=== PATIENT | male | born 1940 | race Caucasian/White ===

== ENCOUNTER → 2016-10-26 | Outpatient (CLI) | payer BC ==
[~2016-10-26] MED LIST: ASPEC81 PO; LISI-788 PO; OMEG10007 PO; PRED20TA PO; RED YEAST RICE
--- NOTE | 2016-10-26 13:02 | DIAGNOSTIC IMAGING REPORT ---
LEFT FOOT MIN 3 VIEWS ROUTINE CLINICAL HISTORY: Intermittent left foot pain. Possible gout. COMPARISON: None FINDINGS: Alignment of the tarsometatarsal joints is anatomic. There is no acute fracture. There is marked joint space narrowing with osteophytosis of the left first metatarsophalangeal joint. Degenerative changes involve the sesamoids. There is mild soft tissue swelling. There are no erosions or soft tissue calcifications. There is mild arthritis within multiple additional articulations of the left foot. There is a suspected healed fracture of the proximal phalanx of the left fifth toe. IMPRESSION: 1. No acute fracture. 2. Marked joint space narrowing with osteophytosis of the left first metatarsophalangeal joint. No erosions or soft tissue calcifications. 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 Electronically signed by: Arnoldo Shea M.D. 10/26/2016 1:00 PM Dictated Date/Time: 10/26/2016 12:59 PM
== END | disposition home or self-care (01) ==
LOC: C.RAD1850 12:28
PROVIDERS: ATTEND Family Medicine
DX: M79.672 Pain in left foot (principal); M25.775 Osteophyte, left foot; E55.9 Vitamin D deficiency, unspecified

== ENCOUNTER → 2016-10-26 | Outpatient (CLI) | payer BC | END | disposition home or self-care (01) | LOC: C.LAB1850 12:07 | PROVIDERS: ATTEND Family Medicine | DX: M79.672 Pain in left foot (principal); E55.9 Vitamin D deficiency, unspecified ==

== ENCOUNTER → 2017-02-25 | Outpatient (CLI) | payer BC | END | disposition home or self-care (01) | LOC: C.LAB1850 12:27 | PROVIDERS: ATTEND Student in an Organized Health Care Education/Training Program | DX: M19.90 Unspecified osteoarthritis, unspecified site (principal); I10 Essential (primary) hypertension; Z68.29 Body mass index [BMI] 29.0-29.9, adult; I35.0 Nonrheumatic aortic (valve) stenosis; E55.9 Vitamin D deficiency, unspecified; R73.01 Impaired fasting glucose; E78.5 Hyperlipidemia, unspecified ==

== ENCOUNTER → 2017-05-13 | Outpatient (CLI) | payer BC ==
--- NOTE | 2017-06-19 08:31 | CODING QUERY NO DIAGNOSIS ---
TREATMENT RENDERED WITHOUT A DIAGNOSIS 40 To promote full compliance with coding requirements relating to patient care, physician participation is requested in all cases of talent acquisition assistant uncertainty. Please assist us with providing a diagnosis/symptom for the test(s) below: A diagnosis/symptom was not documented on your Order. A valid diagnosis/symptom is required to bill all insurances. Please remember that we are unable to code a diagnosis of rule out, probable, possible, questionable, or suspected. DOS 05/13/17 Tests that require a diagnosis: * LAB DIAGNOSIS: Provider Signature: Date: Thank you Tona Lynch [employer] Information Management Once completed, please kindly fax back to [phone] For questions please call [phone]
== END | disposition home or self-care (01) ==
LOC: C.LAB1850 09:39
PROVIDERS: ATTEND Student in an Organized Health Care Education/Training Program
DX: Z01.89 Encounter for other specified special examinations (principal)

== ENCOUNTER → 2017-06-18 | Outpatient (CLI) | payer BC ==
[2017-06-18 12:27] LABS: CHOLESTEROL/HDL RATIO 2.2
== END | disposition home or self-care (01) ==
LOC: C.LAB1850 10:11
PROVIDERS: ATTEND Internal Medicine Cardiovascular Disease
DX: E78.5 Hyperlipidemia, unspecified (principal)

== ENCOUNTER → 2017-06-18 | Outpatient (CLI) | payer BC ==
[2017-06-18 12:20] LABS: ALT/SGPT 33 U/L (12-78); BLOOD UREA NITROGEN 16 mg/dl (7-18); BUN/CREATININE RATIO 19.8 (10-20); C-REACTIVE PROTEIN 0.37 mg/dl (0-0.29); CALCIUM 9.3 mg/dl (8.5-10.1); CARBON DIOXIDE 27 mmol/L (21-32); CHLORIDE 106 mmol/L (98-107); CREATININE 0.83 mg/dl (0.60-1.40); GLUCOSE 103 mg/dl (70-99); SODIUM 138 mmol/L (136-145)
[2017-06-18 12:23] LABS: ALB/GLOB RATIO 1.1 (0.9-2); ALKALINE PHOSPHATASE 82 U/L (45-117); AST/SGOT 27 U/L (15-37)
[2017-06-18 12:31] LABS: INSULIN LOG 0.699
[2017-06-18 12:36] LABS: ESTIMATED AVERAGE GLUCOSE 111 mg/dl; HA1C FLAG Normal (Normal)
[2017-06-18 12:48] LABS: CALCULATED INSULIN SENSITIVITY 0.369
== END | disposition home or self-care (01) ==
LOC: C.LAB1850 10:14
PROVIDERS: ATTEND Physician Assistant Medical
DX: I35.0 Nonrheumatic aortic (valve) stenosis (principal); E66.3 Overweight; R53.83 Other fatigue; E78.5 Hyperlipidemia, unspecified

== ENCOUNTER → 2017-11-19 | Day surgery (SDC) | payer BC ==
[2017-11-07 15:03] VITALS: Ht 176.5 cm; Wt 83.6 kg
[~2017-11-19] VITALS: Ht 176.5 cm; Wt 83.6 kg
[~2017-11-19] MED LIST changes: +AMOX500C3 PO; -ASPEC81 PO; +ASPI81TA28 PO; +B-COTAB53 PO; +CHOL1000 PO; +COEN90TA PO; +LIDOCAINE HCL 2% 2 ML VIAL (20MG/ML) ONE; -LISI-788 PO; +LPT20 PO; +MAGN1POW2 PO; +MULT-506 PO; +NIAC250T8 PO; +NRV/10 PO; +PHEN-905 PO; -PRED20TA PO; +PROPOFOL IV EMULSION 10 MG/ML 20 ML VIAL IV ONE; -RED YEAST RICE; +TAMS0.4C38 PO
--- NOTE | 2017-11-19 10:19 | Endo History and Physical ---
History & Physical Date of Service: Nov 19, 2017. Chief Complaint: Screening Referring Physician: Dr. Acosta History of Present Illness 77 yo CM who presents for screening colonoscopy. Past Surgical History Hx Cardiac Surgery: No Hx Internal Defibrillator: No Hx Pacemaker: No Hx Abdominal Surgery: No Hx of Implantable Prosthesis: No Hx Post-Op Nausea and Vomiting: No Hx Cancer Surgery: No Hx Thoracic Surgery: No Hx Orthopedic: No Hx Urinary Tract Surgery: No Family History None Social History Smoking Status: Former Smoker Hx Substance Use: No Hx Alcohol Use: Yes (2 BEERS/DAY) Allergies Coded Allergies: Lisinopril (Verified Allergy, Unknown, TONGUE SWELLING, 11/07/17) Current Medications Reported Home Medications Medications Dose Route/Sig Max Daily Dose Days Date Category Nyquil Severe Cold/Flu 5-6.25-10-325 mg/15Ml (Zqgwqsvzlynfr-Zoqvpeyboo-Ghcyu) 1 Liq Liq 1 Dose PO UD PRN 11/07/17 Reported Niacin 250 Mg Tab 250 Mg PO DAILY 11/07/17 Reported Co Q10 (Coenzyme Q10) 90 Mg Tab 1 Tab PO DAILY 11/07/17 Reported Multivitamin (Multivitamins) Tab 1 Tab PO DAILY 11/07/17 Reported Amoxil (Amoxicillin) 500 Mg Cap 4 Cap PO UD PRN 11/07/17 Reported Vitamin D3 (Cholecalciferol) 1,000 Unit Tab 1 Tab PO DAILY 11/07/17 Reported Magnesium Glycinate (Magnesium Glycinate (Bulk)) 1 Pow Pow 1 Tab PO DAILY 11/07/17 Reported B Complex (B-Complex W/ Folic Acid) 1 Tab Tab 1 Tab PO DAILY 11/07/17 Reported Flomax (Tamsulosin Hcl) 0.4 Mg Cap 0.4 Mg PO QPM 11/07/17 Reported Aspirin Ec (Aspirin) 81 Mg Tab 81 Mg PO DAILY 11/07/17 Reported Lipitor (Atorvastatin Calcium) 20 Mg Tab 1 Tab PO QPM 11/07/17 Reported Amlodipine Besylate 10 Mg Tab 20 Mg PO QAM 11/07/17 Reported [place]-3 (Fish Oil) 1 Ea Cap 1 Cap PO DAILY 12/22/10 Reported Vital Signs Weight (Kilograms): 83.64 Height (Feet): 5 Height (Inches): 9.5 Physical Exam General Appearance: WD/WN, no apparent distress Respiratory/Chest: Auscultation: breath sounds normal Cardiovascular: Heart Auscultation: RRR Abdomen: Bowel Sounds: normal Inspection & Palpation: soft, non-distended, no tenderness, guarding & rebound Assessment and Plan Assessment: 77 yo CM who presents for screening colonoscopy. Plan: Proceed with colonoscopy.
--- NOTE | 2017-11-19 11:26 | Discharge Instructions ---
Endoscopy Patient Instructions Date / Procedure(s) Performed Nov 19, 2017. Colonoscopy Allergy Information Coded Allergies: Lisinopril (Verified Allergy, Unknown, TONGUE SWELLING, 11/07/17) Discharge Date / Findings Nov 19, 2017. Colon polyps Diverticulosis Internal hemorrhoids Medication Instructions Stopped Medication(s): stopped all supplements on saturday,last ASA Saturday OK to resume all medications today as prescribed Reported Home Medications Medications Dose Route/Sig Max Daily Dose Days Date Category Nyquil Severe Cold/Flu 5-6.25-10-325 mg/15Ml (Lmsfmifkxiiuz-Uajvevpjkc-Imnit) 1 Liq Liq 1 Dose PO UD PRN 11/07/17 Reported Niacin 250 Mg Tab 250 Mg PO DAILY 11/07/17 Reported Co Q10 (Coenzyme Q10) 90 Mg Tab 1 Tab PO DAILY 11/07/17 Reported Multivitamin (Multivitamins) Tab 1 Tab PO DAILY 11/07/17 Reported Amoxil (Amoxicillin) 500 Mg Cap 4 Cap PO UD PRN 11/07/17 Reported Vitamin D3 (Cholecalciferol) 1,000 Unit Tab 1 Tab PO DAILY 11/07/17 Reported Magnesium Glycinate (Magnesium Glycinate (Bulk)) 1 Pow Pow 1 Tab PO DAILY 11/07/17 Reported B Complex (B-Complex W/ Folic Acid) 1 Tab Tab 1 Tab PO DAILY 11/07/17 Reported Flomax (Tamsulosin Hcl) 0.4 Mg Cap 0.4 Mg PO QPM 11/07/17 Reported Aspirin Ec (Aspirin) 81 Mg Tab 81 Mg PO DAILY 11/07/17 Reported Lipitor (Atorvastatin Calcium) 20 Mg Tab 1 Tab PO QPM 11/07/17 Reported Amlodipine Besylate 10 Mg Tab 20 Mg PO QAM 11/07/17 Reported [place]-3 (Fish Oil) 1 Ea Cap 1 Cap PO DAILY 12/22/10 Reported Provider Instructions Activity Restrictions - No exercising or heavy lifting for 24 hours. - Do not drink alcohol the day of the procedure. - Do not drive a car or operate machinery until the day after the procedure. - Do not make any important decisions or sign important papers in 24 hours after the procedure. Following Day: - Return to full activity which may include returning to work/school. Diet Start your diet with liquids and light foods (jello, soup, juice, toast). Then eat your usual diet if not nauseated. Treatment For Common After Affects For mild abdominal pain, bloating, or excessive gas: - Rest - Eat lightly - Lie on right side Follow-Up Information Follow-up with Dr. Kvng Acosta as scheduled Anesthesia Information What You Should Know You have had a procedure that required some medicine to reduce anxiety and discomfort. This treatment is called moderate sedation. After receiving the treatment, you may be sleepy, but you will be able to breathe on your own. The effects of the treatment may last for several hours. Follow these instructions along with Activity/Diet recommendations noted above: * Do NOT do anything where dizziness or clumsiness would be dangerous. * Rest quietly at home today, then you can be up and about tomorrow. * Have a responsible person stay with you the rest of today. * You may have had an I.V. today. If so, you may take the dressing off later today. Recommendations Call your doctor if: * Trouble breathing * Continuous vomiting for more than 24 hours * Temperature above 101 degrees * Severe abdominal pain or bloating * Pain not relieved by pain medicine ordered * There is increased drainage or redness from any incision * A large amount of rectal bleeding greater than 2-3 tablespoons. (If you had a polyp/s removed or have hemorrhoids, a small amount of blood - from the rectum is to be expected.) * You have any unanswered questions or concerns. IN THE EVENT OF A SERIOUS EMERGENCY, GO TO THE NEAREST EMERGENCY ROOM Your discharge instructions were prepared by provider Fernando Mitchell. Patient Instructions Signature Page Jhonatan Persaud Patient (or Guardian) Signature/Date: I have read and understand the instructions given to me by my caregivers. Caregiver/RN/Doctor Signature/Date: The above-named patient and/or guardian has received patient instructions on this date. + Original Patient Signature Page (only) stays with chart. Please make copy for patient.
--- NOTE | 2017-11-19 11:35 | Anesthesiology Progress Note ---
Anesthesia Post Op Note Date & Time Nov 19, 2017 at 11:35 Vital Signs Pain Intensity: 0 Vital Signs Past 12 Hours Date Time Temp Pulse Resp B/P (MAP) Pulse Ox O2 Delivery O2 Flow Rate FiO2 11/19/17 11:29 79 20 119/67 (84) 98 Room Air 11/19/17 10:32 37 104 16 159/81 (107) 98 Room Air Notes Mental Status: alert / awake / arousable, participated in evaluation Pt Amnestic to Procedure: Yes Nausea / Vomiting: adequately controlled Pain: adequately controlled Airway Patency, RR, SpO2: stable & adequate BP & HR: stable & adequate Hydration State: stable & adequate Anesthetic Complications: no major complications apparent
--- NOTE | 2017-11-19 11:35 | GI REPORT ---
Procedure Date: 11/19/2017 10:54 AM Procedure: Colonoscopy Indications: Screening for colorectal malignant neoplasm Medicines: Monitored Anesthesia Care Complications: No immediate complications. Estimated Blood Loss: Estimated blood loss: none. Procedure: Pre-Anesthesia Assessment: - Prior to the procedure, a History and Physical was performed, and patient medications and allergies were reviewed. The patient's tolerance of previous anesthesia was also reviewed. The risks and benefits of the procedure and the sedation options and risks were discussed with the patient. All questions were answered, and informed consent was obtained. Prior Anticoagulants: The patient has taken aspirin, last dose was 2 days prior to procedure. ASA Grade Assessment: III - A patient with severe systemic disease. After reviewing the risks and benefits, the patient was deemed in satisfactory condition to undergo the procedure. After I obtained informed consent, the scope was passed under direct vision. Throughout the procedure, the patient's blood pressure, pulse, and oxygen saturations were monitored continuously. The scope was introduced through the anus and advanced to the terminal ileum. The colonoscopy was performed without difficulty. The patient tolerated the procedure well. The quality of the bowel preparation was good. The terminal ileum, ileocecal valve, appendiceal orifice, and rectum were photographed. Findings: Two sessile polyps were found in the ascending colon. The polyps were 5 to 8 mm in size. These polyps were removed with a hot snare. Resection and retrieval were complete. To prevent bleeding after the polypectomy, one hemostatic clip was successfully placed (MR conditional). There was no bleeding at the end of the procedure. Multiple small-mouthed diverticula were found in the sigmoid colon. Non-bleeding internal hemorrhoids were found during retroflexion. The hemorrhoids were small. Impression: - Two 5 to 8 mm polyps in the ascending colon, removed with a hot snare. Resected and retrieved. Clip (MR conditional) was placed. - Diverticulosis in the sigmoid colon. - Non-bleeding internal hemorrhoids. Recommendation: - Resume previous diet. - Continue present medications. - Repeat colonoscopy for surveillance based on pathology results. - Return to primary care physician as previously scheduled. Fernando Mitchell DO 11/19/2017 11:34:32 AM This report has been signed electronically. Note Initiated On: 11/19/2017 10:54 AM I attest to the content of the Intraoperative Record and orders documented therein, exceptions below
[2017-11-19 12:01] VITALS: BP 142/76; PULSE 65; O2SAT 98
== END | disposition home or self-care (01) ==
LOC: C.GI 10:08
PROVIDERS: ATTEND Internal Medicine
DX: Z12.11 Encounter for screening for malignant neoplasm of colon (principal); D12.2 Benign neoplasm of ascending colon; K57.30 Diverticulosis of large intestine without perforation or abscess without bleeding; K64.8 Other hemorrhoids; I10 Essential (primary) hypertension; E78.5 Hyperlipidemia, unspecified; Z88.8 Allergy status to other drugs, medicaments and biological substances; Z79.82 Long term (current) use of aspirin; Z87.891 Personal history of nicotine dependence

== ENCOUNTER → 2018-02-13 | Outpatient (CLI) | payer BC ==
[~2018-02-13] MED LIST changes: -LIDOCAINE HCL 2% 2 ML VIAL (20MG/ML) ONE; -PROPOFOL IV EMULSION 10 MG/ML 20 ML VIAL IV ONE
== END | disposition home or self-care (01) ==
LOC: C.LABSPEC 17:08
PROVIDERS: ATTEND Podiatrist Primary Podiatric Medicine
DX: B35.1 Tinea unguium (principal)

== ENCOUNTER 2025-05-09 05:41 | Observation (INO) ==
--- NOTE | 2025-05-09 06:03 | Emergency Department Note ---
Impression & Plan Lower gastrointestinal hemorrhage, Hematochezia ED Provider Note NAME: YANY CUTLER AGE: 85 SEX: M : 1940 ARRIVES VIA: Walk-In INFORMANT: Patient, ED PROVIDER(S): Erick Cole DO CHIEF COMPLAINT: GI bleeding HPI: The patient is an 85-year-old male who presented to the emergency department for evaluation of GI bleeding. The patient noticed GI bleeding with clots this morning. He noticed bright red blood. He does have a history of a hemorrhoid. The patient denies having any fever or or vomiting. A few days ago he did have some lower back pain but currently does not have any back pain. The patient came directly to the emergency department this morning. He did not take his Eliquis this morning. ROS: See above HPI for pertinent positives & negatives. A total of 10 systems reviewed and were otherwise negative. PAST MEDICAL HISTORY: See Below PAST SURGICAL HISTORY: See Below FAMILY HISTORY: See Below SOCIAL HISTORY: See Below HOME MEDICATIONS: See Below ALLERGIES: See Below VITALS: See Below PHYSICAL EXAMINATION: GENERAL: Patient is awake alert in no acute distress patient is resting comfortably and showing no signs of anxiety EYES: The conjunctivae are clear. The pupils are round and reactive. EARS, NOSE, MOUTH AND THROAT: The nose is without any evidence of any deformity. NECK: The neck is nontender and supple. RESPIRATORY: Normal respiratory effort is noted there is no evidence of wheezing rhonchi or rales CARDIOVASCULAR: Tachycardic and regular heart sounds were noted to auscultation. There is no definite murmur. GASTROINTESTINAL: The abdomen was soft and nondistended. There is no tenderness guarding rigidity. Rectal exam revealed gross blood. There was an external hemorrhoid but no obvious bleeding was noted. MUSCULOSKELETAL/EXTREMITIES: There is no evidence of gross deformity full range of motion is noted in the hips and shoulders. SKIN: Trace pedal edema was noted bilaterally. NEUROLOGIC: Patient is awake alert and oriented x3 MEDICAL DECISION MAKING: The patient is an 85-year-old male who presented to the emergency department for lower GI bleeding. The patient does not have any significant history of lower GI bleeding. No recent colonoscopy was in our system. The patient had gross blood per rectum. He was passing clots as well. He does take oral anticoagulation because of a history of valve replacement. I discussed the patient's laboratory and radiographic studies with him. Vital signs were stable and hemoglobin was stable. Given his use of oral anticoagulation I do not feel he would be a good candidate for outpatient management so I discussed his condition with the on-call [facility] hospitalist. They have agreed to evaluate the patient in the emergency department for further management and disposition. Likely this represents diverticular bleeding but other sources will likely need to be evaluated. Triage Nursing notes reviewed. Prior medical records reviewed Vital Signs: reviewed and remarkable for no significant abnormalities Differential diagnosis: Diverticulosis, AVM, coagulopathy, colitis, inflammatory bowel disease, malignancy, Shannan-Escoto tear, esophagitis, peptic ulcer disease, variceal bleed, gastritis, epistaxis, fissure, hemorrhoids, as well as other pathologies. ER treatment provided: See below Diagnostics interpreted by me: ECG: EKG was obtained in the emergency department. My interpretation is atrial sensed ventricular paced rhythm at 76 bpm. A left bundle branch block pattern was noted. Nonspecific ST abnormalities were noted. QTc was 459 ms. Cardiac Monitoring: An order was placed for continuous cardiac monitoring. The monitor shows a rate of 82 bpm with paced rhythm. Laboratory studies: As stated above and show below. Imaging studies: See below. Radiographic imaging was reviewed by myself Consultation(s): I discussed this case with Darlin who was on-call for the [facility]ist group. 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 Beliefs That Will Affect Care: None Current Living Situation: Spouse current occupation: Retired Feels Safe at Home: Yes Assistive Devices: None Allergies Allergies Allergy/AdvReac Type Severity Reaction Status Date / Time lisinopril Allergy Unknown TONGUE Verified 07/06/22 11:27 SWELLING Triamterene-HCTZ TABS Allergy Uncoded 07/06/22 11:27 Home Meds Home Medications Medication Instructions Recorded Confirmed aspirin 81 mg chewable tablet 81 mg PO DAILY 07/10/22 07/10/22 Previous Rx's Medication Instructions Recorded acetaminophen 500 mg capsule 1,000 mg (2 x 500 mg) PO TID PRN 06/22/19 pain #90 caps amlodipine 10 mg tablet 10 mg PO DAILY #90 tabs 06/22/19 multivitamin (Multiple Vitamins 1 tab PO QAM #30 tabs 06/22/19 tablet) niacin 250 mg capsule,extended 250 mg PO DAILY #90 caps 06/22/19 release tamsulosin 0.4 mg capsule 0.4 mg PO DAILY #90 caps 06/22/19 atorvastatin 20 mg tablet 20 mg PO QPM #90 tabs 10/26/24 Results & Data (ED) Vital Signs Vital Signs - 24 hr 05/09/25 05:42 05/09/25 05:48 05/09/25 06:00 Temperature 36.7 C Temperature Source Oral Pulse Rate 93 H Pulse Rate [Apical] Respiratory Rate 18 Respiratory Effort / Characteristics Non-Labored Non-Labored Spontaneous Respiratory Depth Normal Normal Respiratory Pattern Regular Blood Pressure [Left Arm] Blood Pressure Mean [Left Arm] Pulse Oximetry Oxygen Delivery Method Room Air Room Air Sepsis Recent Fever Within 48 Hours No Sepsis New/Unexplained Change in Mental Status No Sepsis Action Taken by Nursing No Action Required 05/09/25 06:24 05/09/25 07:30 Temperature Temperature Source Pulse Rate 72 Pulse Rate [Apical] 70 Respiratory Rate 16 Respiratory Effort / Characteristics Non-Labored Spontaneous Respiratory Depth Normal Respiratory Pattern Regular Blood Pressure [Left Arm] 172/64 H Blood Pressure Mean [Left Arm] 100 Pulse Oximetry 95 Oxygen Delivery Method Room Air Sepsis Recent Fever Within 48 Hours Sepsis New/Unexplained Change in Mental Status Sepsis Action Taken by Residential Medications Current Medication List: was personally reviewed by me Laboratory Data Attestation: I reviewed the patient's lab results. 05/09/25 06:10 05/09/25 06:10 Lab Results 05/09/25 05/09/25 Range/Units 06:10 06:30 WBC 7.37 (4.8-10.8) K/ul RBC 4.29 L (4.70-6.10) M/uL Hgb 14.1 (14.0-18.0) g/dl Hct 39.1 L (42.0-52.0) % MCV 91.1 (80.0-100.0) fL MCH 32.9 (25.0-34.0) pg MCHC 36.1 H (32.0-36.0) g/dL RDW Std Deviation 43.8 (36.4-46.3) fL RDW Coeff of Sanya 13.1 (11.5-14.5) % Plt Count 226 (130-400) K/uL MPV 9.0 L (9.4-12.4) fL Immature Gran % (Auto) 0.3 % Neut % (Auto) 61.2 % Lymph % (Auto) 25.0 % [place] % (Auto) 10.3 % Eos % (Auto) 2.4 % Baso % (Auto) 0.8 % Neut # (Auto) 4.51 (1.40-6.50) K/uL Lymph # (Auto) 1.84 (1.20-3.40) K/uL [place] # (Auto) 0.76 H (0.11-0.59) K/uL Eos # (Auto) 0.18 (0.00-0.50) K/uL Baso # (Auto) 0.06 (0.00-0.20) K/uL Immature Gran # (Auto) 0.02 (0.01-0.20) K/uL PT 10.6 (9.0-12.0) Seconds INR 1.0 (0.9-1.1) APTT 32 H (21-31) Seconds PTT Ratio 1.2 Sodium 131 L (136-145) mmol/L Potassium 4.5 (3.5-5.1) mmol/L Chloride 97 L (98-107) mmol/L Carbon Dioxide 27 (21-32) mmol/L Anion Gap 7 (3-11) BUN 17 (6-23) mg/dl Creatinine 0.84 (0.6-1.4) mg/dl Est Cr Clr Drug Dosing 64.2 ml/min eGFR 85.46 BUN/Creatinine Ratio 20.2 H (10-20) Glucose 123 H (70-99(Fasting)) mg/dl Calcium 8.9 (8.6-10.3) mg/dl Total Bilirubin 0.5 (0.2-1.0) mg/dl AST 21 (13-39) U/L ALT 12 (7-52) U/L Alkaline Phosphatase 65 (34-104) U/L Troponin I High Sens 9.6 (0-20) pg/ml Total Protein 6.5 (6.0-8.3) gm/dl Albumin 4.1 (3.4-5.0) gm/dl Globulin 2.4 L (2.5-4.0) gm/dl Albumin/Globulin Ratio 1.7 (0.9-2) Lipase 16 (11-82) U/L Urine Color Yellow Urine Appearance Clear (Clear) Urine pH 6.0 (4.5-7.5) Ur Specific [place] 1.014 (1.000-1.030) Urine Protein 2+ H (Negative) Urine Glucose (UA) Negative (Negative) Urine Ketones Negative (Negative) Urine Blood Trace H (Negative) Urine Nitrite Negative (Negative) Urine Bilirubin Negative (Negative) Urine Urobilinogen Negative (Negative) Ur Leukocyte Esterase Negative (Negative) Urine WBC (Auto) 0-5 (0-5) /hpf Urine RBC (Auto) 0-2 (0-2) /hpf U Hyaline Cast (Auto) 0-2 (0-2) /lpf U Epithel Cells (Auto) 0-2 (0-2) /hpf Urine Bacteria (Auto) None Seen (None Seen) Urine Comment Blood Type O Positive Antibody Screen NEGATIVE Administered Medications Discontinued Medications Sodium Chloride (Nss) 500 mls @ 999 mls/hr IV .Q31M STA Stop: 05/09/25 06:29 Last Infusion: 05/09/25 06:59 Dose: Infused Documented By: Admin: 05/09/25 06:19 Dose: 999 mls/hr Documented By: TAWANA Imaging Data Attestation: I personally reviewed and interpreted this imaging study as follows: My Impression: 1 view chest x-ray was obtained in the emergency department. My interpretation is no free air, cardiomegaly noted, final report below. Radiologist's Impression: Chest X-Ray 05/09/25 06:00 EXAM: XR chest 1V portable CLINICAL HISTORY: GIB TECHNIQUE: An X-ray image of the chest is obtained in PA projection. COMPARISON: No prior studies are available for comparison. FINDINGS: Pulmonary Parenchyma: Right basal atelactasis. No evidence of consolidation, collapse, or focal opacities. No pulmonary nodules are identified. No evidence of pleural effusion or pleural thickening. Heart and Mediastinum: Mild cardiomegaly. No mediastinal widening or masses. No hilar or mediastinal lymphadenopathy. Bony Thorax: Bony thorax appears intact without fractures or deformities. Soft Tissues: Soft tissues overlying the chest wall are unremarkable. Cardiac pacemaker in place. Aortic stent is seen. IMPRESSION: 1. No acute cardiopulmonary abnormalities are identified. 2. Mild cardiomegaly. 3. Cardiac pacemaker in place. Electronically signed by Randal Graham 05-09-2025 07:13 AM Discharge Plan Visit Data Chief Complaint: Rectal Bleed Stated Complaint: bleeding from rectum ED Provider: Erick Cole Discharge Problem: Lower gastrointestinal hemorrhage, Hematochezia Patient Disposition: Being Evaluated by Hospitalist Condition: Fair Forms Stand Alone Forms: [employer] Prescriptions Prescriptions: No Action acetaminophen 500 mg capsule 1,000 mg PO TID PRN (Reason: pain) Qty: 90 0RF multivitamin [Multiple Vitamins] tablet 1 tab PO QAM Qty: 30 0RF niacin 250 mg capsule, extended release 250 mg PO DAILY Qty: 90 3RF amlodipine 10 mg tablet 10 mg PO DAILY Qty: 90 3RF tamsulosin 0.4 mg capsule 0.4 mg PO DAILY Qty: 90 3RF atorvastatin 20 mg tablet 20 mg PO QPM Qty: 90 3RF aspirin 81 mg Tablet,Chewable 81 mg PO DAILY Referrals Referrals: Kvng Acosta MD [Primary Care Provider] -
[2025-05-09] MEDS: SODIUM CHLORIDE 0.9% 500 ML IV STA (06:19)
[2025-05-09 06:34] LABS: Hematocrit (blood only) 39.1 % (42.0-52.0); Hemoglobin 14.1 g/dl (14.0-18.0); Immature Granulocytes # (auto) 0.02 K/uL (0.01-0.20); Immature Granulocytes % (auto) 0.3 %; Mean Corpuscular Hemoglobin 32.9 pg (25.0-34.0); Mean Corpuscular Volume 91.1 fL (80.0-100.0); Platelet Count 226 K/uL (130-400); RDW Standard Deviation 43.8 fL (36.4-46.3); Red Blood Count 4.29 M/uL (4.70-6.10); White Blood Count 7.37 K/ul (4.8-10.8)
[2025-05-09 06:53] LABS: Alanine Aminotransferase 12.0 U/L (7-52); Albumin Globulin Ratio 1.7 (0.9-2); Alkaline Phosphatase 65.0 U/L (34-104); Anion Gap 7.0 (3-11); Bilirubin,Total 0.5 mg/dl (0.2-1.0); Blood Urea Nitrogen 17.0 mg/dl (6-23); Calcium 8.9 mg/dl (8.6-10.3); Carbon Dioxide 27.0 mmol/L (21-32); Chloride 97.0 mmol/L (98-107); Creatinine Clr Calc Pharmacy 64.2 ml/min; Globulin 2.4 gm/dl (2.5-4.0); Glucose 123.0 mg/dl (70-99(Fasting)); Lipase 16.0 U/L (11-82); Potassium 4.5 mmol/L (3.5-5.1); Sodium 131.0 mmol/L (136-145); Total Protein 6.5 gm/dl (6.0-8.3)
[2025-05-09 07:03] LABS: INR 1.0 (0.9-1.1); Partial Thromboplastin Time 32 Seconds (21-31); Prothrombin Time 10.6 Seconds (9.0-12.0)
--- NOTE | 2025-05-09 07:14 | XRay Report ---
EXAM: XR chest 1V portable CLINICAL HISTORY: GIB TECHNIQUE: An X-ray image of the chest is obtained in PA projection. COMPARISON: No prior studies are available for comparison. FINDINGS: Pulmonary Parenchyma: Right basal atelactasis. No evidence of consolidation, collapse, or focal opacities. No pulmonary nodules are identified. No evidence of pleural effusion or pleural thickening. Heart and Mediastinum: Mild cardiomegaly. No mediastinal widening or masses. No hilar or mediastinal lymphadenopathy. Bony Thorax: Bony thorax appears intact without fractures or deformities. Soft Tissues: Soft tissues overlying the chest wall are unremarkable. Cardiac pacemaker in place. Aortic stent is seen. IMPRESSION: 1. No acute cardiopulmonary abnormalities are identified. 2. Mild cardiomegaly. 3. Cardiac pacemaker in place. Electronically signed by Randal Graham 05-09-2025 07:13 AM
[2025-05-09 07:26] LABS: Appearance Urine Clear (Clear); Bacteria Urine Automated None Seen (None Seen); Cast Urine Automated 0-2 /lpf (0-2); Epithelial Cell Urine Auto 0-2 /hpf (0-2); Glucose Urine UA Negative (Negative); RBC Urine Automated 0-2 /hpf (0-2); WBC Urine Automated 0-5 /hpf (0-5)
--- NOTE | 2025-05-09 07:36 | Electrocardiogram Report ---
Test Reason : Blood Pressure : */* mmHG Vent. Rate : 76 BPM Atrial Rate : 76 BPM P-R Int : 216 ms QRS Dur : 128 ms QT Int : 408 ms P-R-T Axes : 64 49 40 degrees QTcB Int : 459 ms Atrial-sensed ventricular-paced rhythm with prolonged AV conduction Abnormal ECG No previous ECGs available Confirmed by Donnie Loomis ([id number]) on 05/09/2025 7:36:35 AM Referred By: REFERRED SELF Confirmed By: Donnie Loomis
[2025-05-09] MEDS: OPTIRAY 320 125ml IV ONE (08:03)
--- NOTE | 2025-05-09 08:30 | CT Scan Report ---
CT ANGIOGRAM OF THE ABDOMEN AND PELVIS CLINICAL HISTORY: Hematochezia. Lower GI bleeding. COMPARISON STUDY: No priors TECHNIQUE: Following the IV administration of 120 cc of Optiray 320, CT angiogram of the abdomen and pelvis was performed from the lung bases the proximal femora. Images are reviewed in the axial, sagit silas, and coronal planes. 3-D MIPS images are created and assessed. IV contrast was administered witho ut complication. A dose lowering technique was utilized adhering to the principles of ALARA. CT DOSE: 1453.64 mGy.cm FINDINGS: Lower chest: There is evidence of previous aortic valve surgery. The heart is enlarged and without pe ricardial effusion. Pacemaker leads are in place. The lung bases are clear noting bibasilar scarring/ atelectasis. Liver: The contrast-enhanced liver is normal in size, contour, and attenuation. There is no intrahepa tic biliary ductal dilatation. The main portal veins appear patent. Gallbladder: There are calcified gallstones with no CT evidence of acute cholecystitis. Spleen: Normal in size and attenuation. Pancreas: Unremarkable. Adrenal glands: There is calcification of the right adrenal gland. The adrenal glands are otherwise n ormal as imaged. Kidneys: The contrast enhanced kidneys are normal in size and without hydronephrosis. The kidneys enh ance symmetrically. Abdominal aorta and iliac arteries: There is advanced atherosclerotic calcification and ectasia of th e abdominal aorta. The abdominal aorta is widely patent. No dissection is seen. 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 The iliac arteries are patent bilaterally noting atherosclerotic plaque and irregularity. Major branches of the abdominal aorta: The celiac trunk, superior mesenteric, and inferior mesenteric arteries are patent. 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 Hig h-grade stenosis is seen at the origin of the inferior mesenteric artery. The right lobe hepatic hola ry arises directly from the abdominal aorta. There is moderate to high-grade stenosis at the origin o f the right hepatic artery. The left low hepatic artery arises from the left gastric artery. The sple augustin artery is patent. There are single bilateral renal arteries. There is high-grade stenosis of the origin of the left renal artery. Moderate stenosis is seen at the origin of the right renal artery. Bowel: There is moderate clonic diverticulosis without CT evidence of acute diverticulitis. A segment of small bowel is contained within a right groin hernia. No bowel obstruction is seen. There is mild -to-moderate colonic fecal retention. A duodenal diverticulum is incidentally noted. The appendix is normal as visualized. There is a small amount of intraluminal contrast suggested in the proximal sig moid colon on image #232 and #233. This likely represents the site of GI bleeding. Peritoneum: There is no intraperitoneal free air or abdominal ascites. There is a fat-containing umbi lical hernia. Lymphadenopathy: None. Pelvic viscera: The prostate gland is enlarged and heterogeneous. There is a large region of asymmetr ic enhancement within the left prostatic lobe. The bladder wall is thickened/trabeculated indicating chronic outlet obstruction. The seminal vesicles are normal as imaged. There are bilateral groin melina ias. The right groin hernia contains a nonobstructed segment of bowel. Bilateral hydroceles are parti ally imaged. Skeletal structures: The skeletal structures are osteopenic. No lytic or blastic bony lesions are see n. Moderate lumbosacral spondylosis is observed. There are chronic/healed right-sided rib fractures. IMPRESSION: 1. There is a small amount of intraluminal contrast suggested in the proximal sigmoid colon, likely r epresenting a site of active GI bleeding. 2. Colonic diverticulosis without CT evidence of acute diverticulitis. 3. 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 The abdominal aorta is widely p atent and without dissection. 4. 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 5. There is high-grade stenosis at the origin of the left renal artery and moderate stenosis at the o rigin of the right renal artery. 6. There is moderate to high-grade stenosis at the origin of the right hepatic artery which arises di rectly from the abdominal aorta. 7. There is heterogeneous and asymmetric enhancement throughout the left lobe of the prostate gland. This is not well evaluated by CT, and this should be correlated with serum PSA levels as a neoplastic process could have this appearance. 8. Cardiomegaly and cardiac pacemaker. 9. Cholelithiasis. 10. Bilateral groin hernias. The right groin hernia contains a nonobstructed segment of small bowel. 11. Additional findings as above. ACT 112: Positive. There are findings on this exam that require communication between the performing entity and the patient following Patient Test Result Information Act ([place] Act 112) guidelines. Electronically signed by: Miguel Turner M.D. 05/09/2025 8:27 AM
--- NOTE | 2025-05-09 09:14 | Gastrointestinal Consultation ---
Date of Consultation May 09, 2025 Assessment & Plan (1) Hematochezia: Likely secondary to diverticulosis. Unlikely neoplastic unlikely ischemic with lack of abdominal pain and nontender abdominal exam. 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 Hemodynamically stable. Recommend holding Eliquis. Remained stable plan for colonoscopy in a.m. Will proceed with bowel prep later today. History of Present Illness Reason for Consultation: Hematochezia History of Present Illness Patient presents with sudden onset of bright red blood per rectum starting early this morning. He has had multiple episodes of bright red blood per rectum. Last bowel movement was small-volume and darker blood with some clots. He takes Eliquis for aortic valve replacement. He also has hypertension and a pacemaker for bradycardia. He has no prior GI history. His last colonoscopy was more than 5 years ago which showed some polyps but does not remember whether they said he had diverticulosis. He denies any abdominal pain nausea vomiting melena. No recent use of NSAIDs. Last Eliquis was last night. CTA does reveal some active bleeding in the sigmoid colon. He is hemodynamically stable at the present time. Allergies Allergy/AdvReac Type Severity Reaction Status Date / Time lisinopril Allergy Unknown TONGUE Verified 07/06/22 11:27 SWELLING Triamterene-HCTZ TABS Allergy Uncoded 07/06/22 11:27 Home Medications Medication Instructions Recorded Confirmed Type acetaminophen 500 mg capsule 1,000 mg (2 x 500 mg) PO TID PRN 06/22/19 05/09/25 Rx pain #90 caps aspirin 81 mg chewable tablet 81 mg PO .3X WEEKLY 07/10/22 05/09/25 History atorvastatin 20 mg tablet 20 mg PO QPM #90 tabs 10/26/24 05/09/25 Rx amlodipine 10 mg tablet (Norvasc) 10 mg PO DAILY 05/09/25 05/09/25 History apixaban 5 mg tablet (Eliquis) 5 mg PO BID 05/09/25 05/09/25 History furosemide 20 mg tablet 20 mg PO DAILY 05/09/25 05/09/25 History metoprolol succinate 25 mg 25 mg PO DAILY 05/09/25 05/09/25 History tablet,extended release 24 hr multivitamin (Multiple Vitamins 1 tab PO UD 05/09/25 05/09/25 History tablet) potassium chloride 10 mEq 10 meq PO .MON,WED,Saturday05/09/25 05/09/25 History tablet,extended release(part/cryst) tamsulosin 0.4 mg capsule 0.4 mg PO BID 05/09/25 05/09/25 History Patient History Medical History Pacemaker Hypertension Surgical History History of heart valve replacement Social History Smoking Status: Never smoker Cigarettes Per Day: 1 pack; Do You Dip or Chew Tobacco: No; Hx Alcohol Use: Yes Alcohol type: beer Hx Substance Use: No Preferred Language: Occitan Skilled Laborer Required: No Beliefs That Will Affect Care: None Current Living Situation: Spouse current occupation: Retired Feels Safe at Home: Yes Assistive Devices: None Review of Systems Review of Systems: No fever No chills No SOB No CP No Abd pain Physical Exam Physical Exam: Eyes; anicteric HENT No masses Chest clear to A Cor S1, S2 physiologic Abd: softer nontender no masses Ext no edema Results & Data Vital Signs (Past 12 Hours) Vital Signs Temp Pulse Pulse Resp BP Pulse Ox O2 Del Method 05/09/25 07:30 70 16 172/64 H 95 Room Air 05/09/25 06:24 72 05/09/25 06:00 Room Air 05/09/25 05:48 36.7 C 93 H 18 Room Air Laboratory Results Laboratory Results - last 48 hr 05/09/25 05/09/25 06:10 06:30 WBC 7.37 RBC 4.29 L Hgb 14.1 Hct 39.1 L MCV 91.1 MCH 32.9 MCHC 36.1 H RDW Std Deviation 43.8 RDW Coeff of Sanya 13.1 Plt Count 226 MPV 9.0 L Immature Gran % (Auto) 0.3 Neut % (Auto) 61.2 Lymph % (Auto) 25.0 [place] % (Auto) 10.3 Eos % (Auto) 2.4 Baso % (Auto) 0.8 Neut # (Auto) 4.51 Lymph # (Auto) 1.84 [place] # (Auto) 0.76 H Eos # (Auto) 0.18 Baso # (Auto) 0.06 Immature Gran # (Auto) 0.02 PT 10.6 INR 1.0 APTT 32 H PTT Ratio 1.2 Sodium 131 L Potassium 4.5 Chloride 97 L Carbon Dioxide 27 Anion Gap 7 BUN 17 Creatinine 0.84 Est Cr Clr Drug Dosing 64.2 eGFR 85.46 BUN/Creatinine Ratio 20.2 H Glucose 123 H Calcium 8.9 Total Bilirubin 0.5 AST 21 ALT 12 Alkaline Phosphatase 65 Troponin I High Sens 9.6 Total Protein 6.5 Albumin 4.1 Globulin 2.4 L Albumin/Globulin Ratio 1.7 Lipase 16 Urine Color Yellow Urine Appearance Clear Urine pH 6.0 Ur Specific [place] 1.014 Urine Protein 2+ H Urine Glucose (UA) Negative Urine Ketones Negative Urine Blood Trace H Urine Nitrite Negative Urine Bilirubin Negative Urine Urobilinogen Negative Ur Leukocyte Esterase Negative Urine WBC (Auto) 0-5 Urine RBC (Auto) 0-2 U Hyaline Cast (Auto) 0-2 U Epithel Cells (Auto) 0-2 Urine Bacteria (Auto) None Seen Urine Comment Blood Type O Positive Antibody Screen NEGATIVE Diagnostic Findings Chest X-Ray 05/09/25 06:00 EXAM: XR chest 1V portable CLINICAL HISTORY: GIB TECHNIQUE: An X-ray image of the chest is obtained in PA projection. COMPARISON: No prior studies are available for comparison. FINDINGS: Pulmonary Parenchyma: Right basal atelactasis. No evidence of consolidation, collapse, or focal opacities. No pulmonary nodules are identified. No evidence of pleural effusion or pleural thickening. Heart and Mediastinum: Mild cardiomegaly. No mediastinal widening or masses. No hilar or mediastinal lymphadenopathy. Bony Thorax: Bony thorax appears intact without fractures or deformities. Soft Tissues: Soft tissues overlying the chest wall are unremarkable. Cardiac pacemaker in place. Aortic stent is seen. IMPRESSION: 1. No acute cardiopulmonary abnormalities are identified. 2. Mild cardiomegaly. 3. Cardiac pacemaker in place. Electronically signed by Randal Graham 05-09-2025 07:13 AM Abdomen/Pelvis CTA 05/09/25 07:29 CT ANGIOGRAM OF THE ABDOMEN AND PELVIS CLINICAL HISTORY: Hematochezia. Lower GI bleeding. COMPARISON STUDY: No priors TECHNIQUE: Following the IV administration of 120 cc of Optiray 320, CT angiogram of the abdomen and pelvis was performed from the lung bases the proximal femora. Images are reviewed in the axial, sagittal, and coronal planes. 3-D MIPS images are created and assessed. IV contrast was administered without complication. A dose lowering technique was utilized adhering to the principles of ALARA. CT DOSE: 1453.64 mGy.cm FINDINGS: Lower chest: There is evidence of previous aortic valve surgery. The heart is enlarged and without pericardial effusion. Pacemaker leads are in place. The lung bases are clear noting bibasilar scarring/atelectasis. Liver: The contrast-enhanced liver is normal in size, contour, and attenuation. There is no intrahepatic biliary ductal dilatation. The main portal veins appear patent. Gallbladder: There are calcified gallstones with no CT evidence of acute cholecystitis. Spleen: Normal in size and attenuation. Pancreas: Unremarkable. Adrenal glands: There is calcification of the right adrenal gland. The adrenal glands are otherwise normal as imaged. Kidneys: The contrast enhanced kidneys are normal in size and without hydronephrosis. The kidneys enhance symmetrically. Abdominal aorta and iliac arteries: There is advanced atherosclerotic calcification and ectasia of the abdominal aorta. The abdominal aorta is widely patent. No dissection is seen. 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 The iliac arteries are patent bilaterally noting atherosclerotic plaque and irregularity. Major branches of the abdominal aorta: The celiac trunk, superior mesenteric, and inferior mesenteric arteries are patent. 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 High-grade stenosis is seen at the origin of the inferior mesenteric artery. The right lobe hepatic artery arises directly from the abdominal aorta. There is moderate to high-grade stenosis at the origin of the right hepatic artery. The left low hepatic artery arises from the left gastric artery. The splenic artery is patent. There are single bilateral renal arteries. There is high-grade stenosis of the origin of the left renal artery. Moderate stenosis is seen at the origin of the right renal artery. Bowel: There is moderate clonic diverticulosis without CT evidence of acute diverticulitis. A segment of small bowel is contained within a right groin hernia. No bowel obstruction is seen. There is [id number] colonic fecal retention. A duodenal diverticulum is incidentally noted. The appendix is normal as visualized. There is a small amount of intraluminal contrast suggested in the proximal sigmoid colon on image #232 and #233. This likely represents the site of GI bleeding. Peritoneum: There is no intraperitoneal free air or abdominal ascites. There is a fat-containing umbilical hernia. Lymphadenopathy: None. Pelvic viscera: The prostate gland is enlarged and heterogeneous. There is a large region of asymmetric enhancement within the left prostatic lobe. The bladder wall is thickened/trabeculated indicating chronic outlet obstruction. The seminal vesicles are normal as imaged. There are bilateral groin hernias. The right groin hernia contains a nonobstructed segment of bowel. Bilateral hydroceles are partially imaged. Skeletal structures: The skeletal structures are osteopenic. No lytic or blastic bony lesions are seen. Moderate lumbosacral spondylosis is observed. There are chronic/healed right-sided rib fractures. IMPRESSION: 1. There is a small amount of intraluminal contrast suggested in the proximal sigmoid colon, likely representing a site of active GI bleeding. 2. Colonic diverticulosis without CT evidence of acute diverticulitis. 3. 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 The abdominal aorta is widely patent and without dissection. 4. 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 5. There is high-grade stenosis at the origin of the left renal artery and moderate stenosis at the origin of the right renal artery. 6. There is moderate to high-grade stenosis at the origin of the right hepatic artery which arises directly from the abdominal aorta. 7. There is heterogeneous and asymmetric enhancement throughout the left lobe of the prostate gland. This is not well evaluated by CT, and this should be correlated with serum PSA levels as a neoplastic process could have this appearance. 8. Cardiomegaly and cardiac pacemaker. 9. Cholelithiasis. 10. Bilateral groin hernias. The right groin hernia contains a nonobstructed segment of small bowel. 11. Additional findings as above. ACT 112: Positive. There are findings on this exam that require communication between the performing entity and the patient following Patient Test Result Information Act ([place] Act 112) guidelines. Electronically signed by: Miguel Turner M.D. 05/09/2025 8:27 AM PG Care Time/CCT Total # of Minutes Spent Total Time Spent with Patient: Total time spent is greater than 50% in coordination of care (as documented) at patient's floor/unit and/or counseling patient: Coding Level of Care Code 27405 INT INP/OBS CARE 375MIN Diagnoses Hematochezia K92.1
--- NOTE | 2025-05-09 09:26 | History & Physical Report ---
Date of Service May 09, 2025 Assessment & Plan (1) Hematochezia: (2) Lower gastrointestinal hemorrhage: (3) LVH (left ventricular hypertrophy): (4) Aortic stenosis, severe: (5) History of heart valve replacement: (6) Pacemaker: (7) Atrial fibrillation: (8) Hypertension: Plan The patient is an 85-year-old male with a past medical history of atrial fibrillation on Eliquis who presents to the ED on 05/09/2025 with complaints of rectal bleeding found to have an active sigmoid colon GI bleed Hematochezia: Sigmoid colon GI bleed: -4 episodes this AM; hgb stable - hemodynamically stable -Discussed w/ GI - will plan for colonoscopy in AM -q6h hgb; IVF NPO - start prep tonight High-grade stenosis of left renal artery/moderate stenosis 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 -consult vascular - likely not contributing or ischemic per GI 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; will need follow up with urology; continue flomax Hx AF/HTN/HLD: -Continue metoprolol & statin; hold amlodipine/aspirin/furosemide Hx Aortic Stenosis s/p AVR/PM: -telemetry monitoring A total of 60 minutes were spent on chart review/reviewing diagnostic data/facilitating plan of care/discussion with consultants Full code DVT prophylaxis:Eliquis on hold due to GI bleed History of Present Illness Chief Complaint: Rectal bleeding Primary Care Provider: Kvng Acosta MD The patient is an 85-year-old male with a past medical history of hyperlipidemia, COPD, A-fib, aortic valve stenosis s/p AVR, HTN, AAA, LBBB, pacemaker who presents to the ED on 05/09/2025 with complaints of bright red bleeding per rectum that started at 4 AM. Patient reports being on Eliquis for about 3 years. Denies any past medical history of GI bleeding. Reported waking up this a.m. and having 2 bowel movements with bright red blood and clots. He then reported to the ED and had 2 more episodes of bright red bleeding with clotting. He denies any abdominal pain. He denies any nausea/vomiting. He reports his bowel habits were normal prior to this. Denies any rectal bleeding in the past. Reports his last dose of Eliquis was last night 05/08. He denies any fever/chills. Denies any recent travel. Denies any recent illness. On arrival to the ED labs remarkable for NA 131, chloride 97, glucose 123, urinalysis unremarkable. Hemoglobin is stable at 14.1. The patient is hemodynamically stable. Chest x-ray is negative Abdominal/pelvis CTA shows: 1. There is a small amount of intraluminal contrast suggested in the proximal sigmoid colon, likely representing a site of active GI bleeding. 2. Colonic diverticulosis without CT evidence of acute diverticulitis. 3. 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 The abdominal aorta is widely patent and without dissection. 4. 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 5. There is high-grade stenosis at the origin of the left renal artery and moderate stenosis at the origin of the right renal artery. 6. There is moderate to high-grade stenosis at the origin of the right hepatic artery which arises directly from the abdominal aorta. 7. There is heterogeneous and asymmetric enhancement throughout the left lobe of the prostate gland. This is not well evaluated by CT, and this should be correlated with serum PSA levels as a neoplastic process could have this appearance. 8. Cardiomegaly and cardiac pacemaker. 9. Cholelithiasis. 10. Bilateral groin hernias. The right groin hernia contains a nonobstructed segment of small bowel. 11. Additional findings as above. The patient will be admitted for further management of active sigmoid colon GI bleed Allergies Allergy/AdvReac Type Severity Reaction Status Date / Time lisinopril Allergy Unknown TONGUE Verified 07/06/22 11:27 SWELLING Triamterene-HCTZ TABS Allergy Uncoded 07/06/22 11:27 Home Medications Medication Instructions Recorded Confirmed Type acetaminophen 500 mg capsule 1,000 mg (2 x 500 mg) PO TID PRN 06/22/19 05/09/25 Rx pain #90 caps aspirin 81 mg chewable tablet 81 mg PO .3X WEEKLY 07/10/22 05/09/25 History atorvastatin 20 mg tablet 20 mg PO QPM #90 tabs 10/26/24 05/09/25 Rx amlodipine 10 mg tablet (Norvasc) 10 mg PO DAILY 05/09/25 05/09/25 History apixaban 5 mg tablet (Eliquis) 5 mg PO BID 05/09/25 05/09/25 History furosemide 20 mg tablet 20 mg PO DAILY 05/09/25 05/09/25 History metoprolol succinate 25 mg 25 mg PO DAILY 05/09/25 05/09/25 History tablet,extended release 24 hr multivitamin (Multiple Vitamins 1 tab PO UD 05/09/25 05/09/25 History tablet) potassium chloride 10 mEq 10 meq PO .SAT,SAT,Saturday05/09/25 05/09/25 History tablet,extended release(part/cryst) tamsulosin 0.4 mg capsule 0.4 mg PO BID 05/09/25 05/09/25 History Past Med/Surg History Problem List (Updated 05/09/25 @ 09:28 by CYN Kauffman) Atrial fibrillation Hematochezia (Acute) Lower gastrointestinal hemorrhage (Acute) Aortic stenosis, severe LVH (left ventricular hypertrophy) Medical History Pacemaker Hypertension Surgical History History of heart valve replacement Social History Smoking Status: Never smoker Cigarettes Per Day: 1 pack; Do You Dip or Chew Tobacco: No; Hx Alcohol Use: Yes Alcohol type: beer Hx Substance Use: No Preferred Language: Ecuadorean Study Assistant Required: No Beliefs That Will Affect Care: None Current Living Situation: Spouse current occupation: Retired Feels Safe at Home: Yes Assistive Devices: None Review of Systems Review of Systems: All systems reviewed & are unremarkable except as noted in HPI & below Physical Exam Constitutional: WD/WN, vitals as above Eyes: PERRL, conjunctivae normal, anicteric sclerae ENMT: external ear and nose normal, oropharynx normal Neck: trachea midline, no thyromegaly Respiratory: normal respiratory effort, lungs clear to auscultation Cardiovascular: RRR, no murmur, no edema (+1 bilateral pedal edema, chronic) Gastrointestinal (Abdomen): normal bowel sounds, soft, nontender, no hepatosplenomegaly Musculoskeletal: no cyanosis or clubbing, extremities motor strength 5/5 Neurologic: PERRL, EOMI, accommodation nl, no face palsy, no dysarthria Results & Data Results & Data Vital Signs (Past 12 Hours) Vital Signs Temp Pulse Pulse Resp BP Pulse Ox O2 Del Method 05/09/25 07:30 70 16 172/64 H 95 Room Air 05/09/25 06:24 72 05/09/25 06:00 Room Air 05/09/25 05:48 36.7 C 93 H 18 Room Air Diagnostic Findings Laboratory Results WBC 7.37 K/ul (4.8-10.8) 05/09/25 06:10 RBC 4.29 M/uL (4.70-6.10) L 05/09/25 06:10 Hgb 14.1 g/dl (14.0-18.0) 05/09/25 06:10 Hct 39.1 % (42.0-52.0) L 05/09/25 06:10 MCV 91.1 fL (80.0-100.0) 05/09/25 06:10 MCH 32.9 pg (25.0-34.0) 05/09/25 06:10 MCHC 36.1 g/dL (32.0-36.0) H 05/09/25 06:10 RDW Std Deviation 43.8 fL (36.4-46.3) 05/09/25 06:10 RDW Coeff of Sanya 13.1 % (11.5-14.5) 05/09/25 06:10 Plt Count 226 K/uL (130-400) 05/09/25 06:10 MPV 9.0 fL (9.4-12.4) L 05/09/25 06:10 Immature Gran % (Auto) 0.3 % 05/09/25 06:10 Neut % (Auto) 61.2 % 05/09/25 06:10 Lymph % (Auto) 25.0 % 05/09/25 06:10 [place] % (Auto) 10.3 % 05/09/25 06:10 Eos % (Auto) 2.4 % 05/09/25 06:10 Baso % (Auto) 0.8 % 05/09/25 06:10 Neut # (Auto) 4.51 K/uL (1.40-6.50) 05/09/25 06:10 Lymph # (Auto) 1.84 K/uL (1.20-3.40) 05/09/25 06:10 [place] # (Auto) 0.76 K/uL (0.11-0.59) H 05/09/25 06:10 Eos # (Auto) 0.18 K/uL (0.00-0.50) 05/09/25 06:10 Baso # (Auto) 0.06 K/uL (0.00-0.20) 05/09/25 06:10 Immature Gran # (Auto) 0.02 K/uL (0.01-0.20) 05/09/25 06:10 PT 10.6 Seconds (9.0-12.0) 05/09/25 06:10 INR 1.0 (0.9-1.1) 05/09/25 06:10 APTT 32 Seconds (21-31) H 05/09/25 06:10 PTT Ratio 1.2 05/09/25 06:10 Sodium 131 mmol/L (136-145) L 05/09/25 06:10 Potassium 4.5 mmol/L (3.5-5.1) 05/09/25 06:10 Chloride 97 mmol/L (98-107) L 05/09/25 06:10 Carbon Dioxide 27 mmol/L (21-32) 05/09/25 06:10 Anion Gap 7 (3-11) 05/09/25 06:10 BUN 17 mg/dl (6-23) 05/09/25 06:10 Creatinine 0.84 mg/dl (0.6-1.4) 05/09/25 06:10 Est Cr Clr Drug Dosing 64.2 ml/min 05/09/25 06:10 eGFR 85.46 05/09/25 06:10 BUN/Creatinine Ratio 20.2 (10-20) H 05/09/25 06:10 Glucose 123 mg/dl (70-99(Fasting)) H 05/09/25 06:10 Calcium 8.9 mg/dl (8.6-10.3) 05/09/25 06:10 Total Bilirubin 0.5 mg/dl (0.2-1.0) 05/09/25 06:10 AST 21 U/L (13-39) 05/09/25 06:10 ALT 12 U/L (7-52) 05/09/25 06:10 Alkaline Phosphatase 65 U/L (34-104) 05/09/25 06:10 Troponin I High Sens 9.6 pg/ml (0-20) 05/09/25 06:10 Total Protein 6.5 gm/dl (6.0-8.3) 05/09/25 06:10 Albumin 4.1 gm/dl (3.4-5.0) 05/09/25 06:10 Globulin 2.4 gm/dl (2.5-4.0) L 05/09/25 06:10 Albumin/Globulin Ratio 1.7 (0.9-2) 05/09/25 06:10 Lipase 16 U/L (11-82) 05/09/25 06:10 Urine Color Yellow 05/09/25 06:30 Urine Appearance Clear (Clear) 05/09/25 06:30 Urine pH 6.0 (4.5-7.5) 05/09/25 06:30 Ur Specific [place] 1.014 (1.000-1.030) 05/09/25 06:30 Urine Protein 2+ (Negative) H 05/09/25 06:30 Urine Glucose (UA) Negative (Negative) 05/09/25 06:30 Urine Ketones Negative (Negative) 05/09/25 06:30 Urine Blood Trace (Negative) H 05/09/25 06:30 Urine Nitrite Negative (Negative) 05/09/25 06:30 Urine Bilirubin Negative (Negative) 05/09/25 06:30 Urine Urobilinogen Negative (Negative) 05/09/25 06:30 Ur Leukocyte Esterase Negative (Negative) 05/09/25 06:30 Urine WBC (Auto) 0-5 /hpf (0-5) 05/09/25 06:30 Urine RBC (Auto) 0-2 /hpf (0-2) 05/09/25 06:30 U Hyaline Cast (Auto) 0-2 /lpf (0-2) 05/09/25 06:30 U Epithel Cells (Auto) 0-2 /hpf (0-2) 05/09/25 06:30 Urine Bacteria (Auto) None Seen (None Seen) 05/09/25 06:30 Urine Comment 05/09/25 06:30 Blood Type O Positive 05/09/25 06:10 Antibody Screen NEGATIVE 05/09/25 06:10 Impressions Chest X-Ray 05/09/25 06:00 EXAM: XR chest 1V portable CLINICAL HISTORY: GIB TECHNIQUE: An X-ray image of the chest is obtained in PA projection. COMPARISON: No prior studies are available for comparison. FINDINGS: Pulmonary Parenchyma: Right basal atelactasis. No evidence of consolidation, collapse, or focal opacities. No pulmonary nodules are identified. No evidence of pleural effusion or pleural thickening. Heart and Mediastinum: Mild cardiomegaly. No mediastinal widening or masses. No hilar or mediastinal lymphadenopathy. Bony Thorax: Bony thorax appears intact without fractures or deformities. Soft Tissues: Soft tissues overlying the chest wall are unremarkable. Cardiac pacemaker in place. Aortic stent is seen. IMPRESSION: 1. No acute cardiopulmonary abnormalities are identified. 2. Mild cardiomegaly. 3. Cardiac pacemaker in place. Electronically signed by Randal Graham 05-09-2025 07:13 AM Abdomen/Pelvis CTA 05/09/25 07:29 CT ANGIOGRAM OF THE ABDOMEN AND PELVIS CLINICAL HISTORY: Hematochezia. Lower GI bleeding. COMPARISON STUDY: No priors TECHNIQUE: Following the IV administration of 120 cc of Optiray 320, CT angiogram of the abdomen and pelvis was performed from the lung bases the proximal femora. Images are reviewed in the axial, sagittal, and coronal planes. 3-D MIPS images are created and assessed. IV contrast was administered without complication. A dose lowering technique was utilized adhering to the principles of ALARA. CT DOSE: 1453.64 mGy.cm FINDINGS: Lower chest: There is evidence of previous aortic valve surgery. The heart is enlarged and without pericardial effusion. Pacemaker leads are in place. The lung bases are clear noting bibasilar scarring/atelectasis. Liver: The contrast-enhanced liver is normal in size, contour, and attenuation. There is no intrahepatic biliary ductal dilatation. The main portal veins appear patent. Gallbladder: There are calcified gallstones with no CT evidence of acute cholecystitis. Spleen: Normal in size and attenuation. Pancreas: Unremarkable. Adrenal glands: There is calcification of the right adrenal gland. The adrenal glands are otherwise normal as imaged. Kidneys: The contrast enhanced kidneys are normal in size and without hyd ronephrosis. The kidneys enhance symmetrically. Abdominal aorta and iliac arteries: There is advanced atherosclerotic calcification and ectasia of the abdominal aorta. The abdominal aorta is widely patent. No dissection is seen. 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 The iliac arteries are patent bilaterally noting atherosclerotic plaque and irregularity. Major branches of the abdominal aorta: The celiac trunk, superior mesenteric, and inferior mesenteric arteries are patent. 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 High-grade stenosis is seen at the origin of the inferior mesenteric artery. The right lobe hepatic artery arises directly from the abdominal aorta. There is moderate to high-grade stenosis at the origin of the right hepatic artery. The left low hepatic artery arises from the left gastric artery. The splenic artery is patent. There are single bilateral renal arteries. There is high-grade stenosis of the origin of the left renal artery. Moderate stenosis is seen at the origin of the right renal artery. Bowel: There is moderate clonic diverticulosis without CT evidence of acute d iverticulitis. A segment of small bowel is contained within a right groin hernia. No bowel obstruction is seen. There is [id number] colonic fecal retention. A duodenal diverticulum is incidentally noted. The appendix is normal as visualized. There is a small amount of intraluminal contrast suggested in the proximal sigmoid colon on image #232 and #233. This likely represents the site of GI bleeding. Peritoneum: There is no intraperitoneal free air or abdominal ascites. There is a fat-containing umbilical hernia. Lymphadenopathy: None. Pelvic viscera: The prostate gland is enlarged and heterogeneous. There is a large region of asymmetric enhancement within the left prostatic lobe. The bladder wall is thickened/trabeculated indicating chronic outlet obstruction. The seminal vesicles are normal as imaged. There are bilateral groin hernias. The right groin hernia contains a nonobstructed segment of bowel. Bilateral hydroceles are partially imaged. Skeletal structures: The skeletal structures are osteopenic. No lytic or blastic bony lesions are seen. Moderate lumbosacral spondylosis is observed. There are chronic/healed right-sided rib fractures. IMPRESSION: 1. There is a small amount of intraluminal contrast suggested in the proximal sigmoid colon, likely representing a site of active GI bleeding. 2. Colonic diverticulosis without CT evidence of acute diverticulitis. 3. 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 The abdominal aorta is widely patent and without dissection. 4. 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 5. There is high-grade stenosis at the origin of the left renal artery and moderate stenosis at the origin of the right renal artery. 6. There is moderate to high-grade stenosis at the origin of the right hepatic artery which arises directly from the abdominal aorta. 7. There is heterogeneous and asymmetric enhancement throughout the left lobe of the prostate gland. This is not well evaluated by CT, and this should be correlated with serum PSA levels as a neoplastic process could have this appe arance. 8. Cardiomegaly and cardiac pacemaker. 9. Cholelithiasis. 10. Bilateral groin hernias. The right groin hernia contains a nonobstructed segment of small bowel. 11. Additional findings as above. ACT 112: Positive. There are findings on this exam that require communication between the performing entity and the patient following Patient Test Result Information Act ([place] Act 112) guidelines. Electronically signed by: Miguel Turner M.D. 05/09/2025 8:27 AM Supervising Physician Co-Signing Physician Notes Patient seen and examined at bedside Reports sudden onset BRBPR that started at 4AM, painless CTA Abd/Pelvis noted small amount of intraluminal contrast in prox sigmoid colon likely site of active GI bleed GI on board. Planning C-scope in AM. NPO PMN Monitor Hb q6h Transfuse prn for Hb <7 or symptomatic anemia Hold SYSTEMS INTEGRATION ADVISOR eliquis and ASA Other findings on CT include mod stenosis at origin of SMA and Right renal artery, high grade stenosis at origin of YOSEPH and left renal artery, mod to high grade stenosis at origin of right hepatic artery 1.7cm saccular aneurysm of distal aorta Continue Atorvastatin Other plans as detailed by Anthony ADDISON
[2025-05-09 09:34] LABS: Prostate SpecificAg Diagnostic 41.62 ng/ml (0-4)
[2025-05-09] MEDS: METOPROLOL SUCC 25MG EXT REL TAB PO STA (09:39)
[2025-05-09] MEDS: SODIUM CHLORIDE 0.9% 500 ML IV SCH (09:42)
[2025-05-09] MEDS ORDERED: METOPROLOL SUCC 25MG EXT REL TAB PO SCH (11:42)
[2025-05-09] MEDS ORDERED: ACETAMINOPHEN 325 MG TAB PO PRN (11:42)
--- NOTE | 2025-05-09 14:32 | Vascular Medicine Consultation ---
Date of Consultation May 09, 2025 Assessment & Plan (1) Renal artery stenosis: I believe these abnormal findings on the CT arteriogram are incidental. I would recommend ongoing workup of the GI bleed as is being done. There is no further interrogation or intervention needed from my standpoint. I can see him back on an as-needed basis. All questions were answered. History of Present Illness Reason for Consultation: Abnormal mesenteric vasculature seen on CTA Attending Physician: Heather Gilmore MD History of Present Illness Asked to evaluate this 85-year-old gentleman who was admitted with lower GI bleeding. CT arteriogram performed earlier today demonstrates abnormalities of the visceral vessels. 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 There appears to be stenosis of the left renal and right renal arteries as well. He denies any history of postprandial abdominal pain or weight loss. He has been on a very stable medical regimen for hypertension (amlodipine and metoprolol. He denies any history of renal dysfunction and his renal function testing here on admission are normal. Allergies Allergy/AdvReac Type Severity Reaction Status Date / Time lisinopril Allergy Unknown TONGUE Verified 07/06/22 11:27 SWELLING Triamterene-HCTZ TABS Allergy Uncoded 07/06/22 11:27 Home Medications Medication Instructions Recorded Confirmed Type acetaminophen 500 mg capsule 1,000 mg (2 x 500 mg) PO TID PRN 06/22/19 05/09/25 Rx pain #90 caps aspirin 81 mg chewable tablet 81 mg PO .3X WEEKLY 07/10/22 05/09/25 History atorvastatin 20 mg tablet 20 mg PO QPM #90 tabs 10/26/24 05/09/25 Rx amlodipine 10 mg tablet (Norvasc) 10 mg PO DAILY 05/09/25 05/09/25 History apixaban 5 mg tablet (Eliquis) 5 mg PO BID 05/09/25 05/09/25 History furosemide 20 mg tablet 20 mg PO DAILY 05/09/25 05/09/25 History metoprolol succinate 25 mg 25 mg PO DAILY 05/09/25 05/09/25 History tablet,extended release 24 hr multivitamin (Multiple Vitamins 1 tab PO UD 05/09/25 05/09/25 History tablet) potassium chloride 10 mEq 10 meq PO .MON,WED,Saturday05/09/25 05/09/25 History tablet,extended release(part/cryst) tamsulosin 0.4 mg capsule 0.4 mg PO BID 05/09/25 05/09/25 History Patient History Medical History Pacemaker Hypertension Surgical History History of heart valve replacement Social History Smoking Status: Never smoker Cigarettes Per Day: 1 pack; Do You Dip or Chew Tobacco: No; Hx Alcohol Use: No Hx Substance Use: No Preferred Language: American Communication Ability: Effective Finishing Powder 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 Radial femoral and dorsalis pedis pulses are normal. Results & Data Vital Signs (Past 12 Hours) Vital Signs Temp Pulse Pulse Resp BP Pulse Ox O2 Del Method 05/09/25 12:52 173/53 H 05/09/25 12:00 36.7 C 64 18 180/55 H 94 Room Air 05/09/25 11:29 98 H 15 157/59 H 97 Room Air 05/09/25 09:49 71 22 172/50 H 95 Room Air 05/09/25 07:30 70 16 172/64 H 95 Room Air 05/09/25 06:24 72 05/09/25 06:00 Room Air 05/09/25 05:48 36.7 C 93 H 18 Room Air Diagnostic Findings CT scan was reviewed and findings are as noted above. PG Care Time/CCT Total # of Minutes Spent Total Time Spent with Patient: Total time spent is greater than 50% in coordination of care (as documented) at patient's floor/unit and/or counseling patient: Coding Level of Care Code 63321 OFFICE CONSULT LVL Diagnoses Renal artery stenosis I70.1
[2025-05-09] MEDS: ATORVASTATIN 20 MG TAB PO SCH (20:30)
[2025-05-09] MEDS: TAMSULOSIN HCL 0.4 MG CAP PO SCH (20:30)
[2025-05-09] MEDS: LAVAGE SOLUTION 4000ML PO SCH (21:14)
[2025-05-10] MEDS: METOPROLOL TARTRATE 25 MG TAB PO STA (04:10)
[2025-05-10 04:13] LABS: Hematocrit (blood only) 33.7 % (42.0-52.0); Hemoglobin 11.3 g/dl (14.0-18.0); Immature Granulocytes # (auto) 0.02 K/uL (0.01-0.20); Immature Granulocytes % (auto) 0.3 %; Mean Corpuscular Hemoglobin 31.1 pg (25.0-34.0); Mean Corpuscular Volume 92.8 fL (80.0-100.0); Platelet Count 203 K/uL (130-400); RDW Standard Deviation 45.8 fL (36.4-46.3); Red Blood Count 3.63 M/uL (4.70-6.10); White Blood Count 6.26 K/ul (4.8-10.8)
[2025-05-10 04:27] LABS: Alanine Aminotransferase 11.0 U/L (7-52); Albumin Globulin Ratio 1.5 (0.9-2); Alkaline Phosphatase 47.0 U/L (34-104); Anion Gap 6.0 (3-11); Bilirubin,Total 0.6 mg/dl (0.2-1.0); Blood Urea Nitrogen 11.0 mg/dl (6-23); Calcium 8.5 mg/dl (8.6-10.3); Carbon Dioxide 24.0 mmol/L (21-32); Chloride 101.0 mmol/L (98-107); Creatinine Clr Calc Pharmacy 70.4 ml/min; Globulin 2.2 gm/dl (2.5-4.0); Glucose 91.0 mg/dl (70-99(Fasting)); Potassium 4.1 mmol/L (3.5-5.1); Sodium 131.0 mmol/L (136-145); Total Protein 5.4 gm/dl (6.0-8.3)
[2025-05-10] MEDS: METOPROLOL SUCC 25MG EXT REL TAB PO STA (08:47)
[2025-05-10] MEDS ORDERED: METOPROLOL SUCC 25MG EXT REL TAB PO SCH (09:00)
--- NOTE | 2025-05-10 09:38 | History & Physical Bridge Note ---
Date of Service May 10, 2025 History & Physical Bridge Note I have examined the patient, reviewed the History & Physical and in the interval since the performance of the History & Physical I have noted the following changes of clinical significance: no changes noted. Patient still with some rectal bleeding with prep. he did finish this and tells me that stools are clearing. NPO. no chest pain or sob. The remainder of the GI ROS were unremarkable. - will plan for colonoscopy today to further evaluate. Supervising Physician Co-Signing Physician Notes Patient is safe to proceed with colonoscopy. I personally saw and examined the patient. I have reviewed the chart and agree with the documentation provided by the AIDS NURSE including discussion about the assessment, treatment and plan.
--- NOTE | 2025-05-10 10:57 | Hospitalist Progress Note ---
Date of Service May 10, 2025 Assessment & Plan (1) Hematochezia: (2) Lower gastrointestinal hemorrhage: (3) LVH (left ventricular hypertrophy): (4) Aortic stenosis, severe: (5) History of heart valve replacement: (6) Pacemaker: (7) Atrial fibrillation: (8) Hypertension: Plan The patient is an 85-year-old male with a past medical history of atrial fibrillation on Eliquis who presents to the ED on 05/09/2025 with complaints of rectal bleeding found to have an active sigmoid colon GI bleed Hematochezia Sigmoid colon GI bleed Acute blood loss anemia -Continues to have episodes overnight; hgb 11.5 (hgb 13.5 on admission) -No indication from transfusion at this time -Discussed w/ GI - will plan for colonoscopy later today 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 Recommend ongoing workup of the GI bleed as is being done. No further interrogation or intervention needed from vasc perspective - can follow up with Dr. Izquierdo on an as-needed basis. 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; will need follow up with urology; continue flomax Hx AF/HTN/HLD: - BP elevated this AM with held antihypertensives - gave AM amlodipine and Toprol, continue monitoring - Holding aspirin, furosemide, statin for procedure today - Holding Eliquis for now given GI bleed Hx Aortic Stenosis s/p AVR/PM: -telemetry monitoring I spent a total of 50 minutes coordinating, documenting, and providing care for this patient excluding time spent in the performance of separately billed services or time spent by another provider/QHP. Care coordinated with Dr. Gilmore. Code: Full code DVT prophylaxis: Eliquis on hold due to GI bleed Admission and Anticipated Discharge Date Admission Date: May 09, 2025 Supervising Physician Co-Signing Physician Notes Agree with finding and plan as detailed by Sheeba Franklin PA-C Subjective Seen and examined in 455-1. Completed bowel prep last evening and continues to have bright red blood per rectum and otherwise liquid output, mainly clear. Denies any abdominal pain. No lightheadedness, fever, chills, chest pain, shortness of breath. No nausea or vomiting. Awaiting colonoscopy today. Review of Systems Review of Systems: At least ten systems reviewed and negative except as noted in the HPI. Physical Exam Physical Exam: Gen: WD/WN, NAD,resting in bed comfortably, A&Ox3 HEENT: Normocephalic, atraumatic Lung: Clear to Auscultation bilaterally Heart: Regular rate, regular rhythm Abdomen: Soft, NT, ND +BS x 4 Extremities: no edema Skin: Warm, no rash Results & Data Results & Data Vital Signs (Past 12 Hours) Vital Signs Temp Pulse Resp BP Pulse Ox O2 Del Method 05/10/25 10:42 74 188/50 H 98 Room Air 05/10/25 07:28 36.3 C L 68 17 204/63 H 97 Room Air 05/10/25 04:23 36.6 C 73 17 186/57 H 97 Room Air 05/10/25 00:03 36.4 C L 67 17 172/53 H 97 Room Air Laboratory Results Short CBC 05/09/25 05/09/25 05/10/25 Range/Units 14:39 20:48 03:40 WBC 6.26 (4.8-10.8) K/ul Hgb 13.5 L 12.5 L 11.3 L (14.0-18.0) g/dl Hct 33.7 L (42.0-52.0) % Plt Count 203 (130-400) K/uL 05/10/25 Range/Units 09:16 WBC (4.8-10.8) K/ul Hgb 11.5 L (14.0-18.0) g/dl Hct (42.0-52.0) % Plt Count (130-400) K/uL BMP 05/10/25 03:40 Sodium 131 L Potassium 4.1 Chloride 101 Carbon Dioxide 24 BUN 11 Creatinine 0.77 Glucose 91 Calcium 8.5 L Liver Function 05/10/25 Range/Units 03:40 Total Bilirubin 0.6 (0.2-1.0) mg/dl AST 16 (13-39) U/L ALT 11 (7-52) U/L Alkaline Phosphatase 47 (34-104) U/L Albumin 3.2 L (3.4-5.0) gm/dl Diagnostic Findings Chest X-Ray 05/09/25 06:00 EXAM: XR chest 1V portable CLINICAL HISTORY: GIB TECHNIQUE: An X-ray image of the chest is obtained in PA projection. COMPARISON: No prior studies are available for comparison. FINDINGS: Pulmonary Parenchyma: Right basal atelactasis. No evidence of consolidation, collapse, or focal opacities. No pulmonary nodules are identified. No evidence of pleural effusion or pleural thickening. Heart and Mediastinum: Mild cardiomegaly. No mediastinal widening or masses. No hilar or mediastinal lymphadenopathy. Bony Thorax: Bony thorax appears intact without fractures or deformities. Soft Tissues: Soft tissues overlying the chest wall are unremarkable. Cardiac pacemaker in place. Aortic stent is seen. IMPRESSION: 1. No acute cardiopulmonary abnormalities are identified. 2. Mild cardiomegaly. 3. Cardiac pacemaker in place. Electronically signed by Randal Graham 05-09-2025 07:13 AM Abdomen/Pelvis CTA 05/09/25 07:29 CT ANGIOGRAM OF THE ABDOMEN AND PELVIS CLINICAL HISTORY: Hematochezia. Lower GI bleeding. COMPARISON STUDY: No priors TECHNIQUE: Following the IV administration of 120 cc of Optiray 320, CT an giogram of the abdomen and pelvis was performed from the lung bases the proximal femora. Images are reviewed in the axial, sagittal, and coronal planes. 3-D MIPS images are created and assessed. IV contrast was administered without complication. A dose lowering technique was utilized adhering to the principles of ALARA. CT DOSE: 1453.64 mGy.cm FINDINGS: Lower chest: There is evidence of previous aortic valve surgery. The heart is enlarged and without pericardial effusion. Pacemaker leads are in place. The lung bases are clear noting bibasilar scarring/atelectasis. Liver: The contrast-enhanced liver is normal in size, contour, and attenuation. There is no intrahepatic biliary ductal dilatation. The main portal veins appear patent. Gallbladder: There are calcified gallstones with no CT evidence of acute cholecystitis. Spleen: Normal in size and attenuation. Pancreas: Unremarkable. Adrenal glands: There is calcification of the right adrenal gland. The adrenal glands are otherwise normal as imaged. Kidneys: The contrast enhanced kidneys are normal in size and without hydronephrosis. The kidneys enhance symmetrically. Abdominal aorta and iliac arteries: There is advanced atherosclerotic calcification and ectasia of the abdominal aorta. The abdominal aorta is widely patent. No dissection is seen. 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 The iliac arteries are patent bilaterally noting atherosclerotic plaque and irregularity. Major branches of the abdominal aorta: The celiac trunk, superior mesenteric, and inferior mesenteric arteries are patent. 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 High-grade stenosis is seen at the origin of the inferior mesenteric artery. The right lobe hepatic artery arises directly from the abdominal aorta. There is moderate to high-grade stenosis at the origin of the right hepatic artery. The left low hepatic artery arises from the left gastric artery. The splenic artery is patent. There are single bilateral renal arteries. There is high-grade stenosis of the origin of the left renal artery. Moderate stenosis is seen at the origin of the right renal artery. Bowel: There is moderate clonic diverticulosis without CT evidence of acute diverticulitis. A segment of small bowel is contained within a right groin hernia. No bowel obstruction is seen. There is [id number] colonic fecal retention. A duodenal diverticulum is incidentally noted. The appendix is normal as visualized. There is a small amount of intraluminal contrast suggested in the proximal sigmoid colon on image #232 and #233. This likely represents the site of GI bleeding. Peritoneum: There is no intraperitoneal free air or abdominal ascites. There is a fat-containing umbilical hernia. Lymphadenopathy: None. Pelvic viscera: The prostate gland is enlarged and heterogeneous. There is a large region of asymmetric enhancement within the left prostatic lobe. The bladder wall is thickened/trabeculated indicating chronic outlet obstruction. The seminal vesicles are normal as imaged. There are bilateral groin hernias. The right groin hernia contains a nonobstructed segment of bowel. Bilateral hydroceles are partially imaged. Skeletal structures: The skeletal structures are osteopenic. No lytic or blastic bony lesions are seen. Moderate lumbosacral spondylosis is observed. There are chronic/healed right-sided rib fractures. IMPRESSION: 1. There is a small amount of intraluminal contrast suggested in the proximal sigmoid colon, likely representing a site of active GI bleeding. 2. Colonic diverticulosis without CT evidence of acute diverticulitis. 3. 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 The abdominal aorta is widely patent and without dissection. 4. 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 5. There is high-grade stenosis at the origin of the left renal artery and moderate stenosis at the origin of the right renal artery. 6. There is moderate to high-grade stenosis at the origin of the right hepatic artery which arises directly from the abdominal aorta. 7. There is heterogeneous and asymmetric enhancement throughout the left lobe of the prostate gland. This is not well evaluated by CT, and this should be correlated with serum PSA levels as a neoplastic process could have this appearance. 8. Cardiomegaly and cardiac pacemaker. 9. Cholelithiasis. 10. Bilateral groin hernias. The right groin hernia contains a nonobstructed segment of small bowel. 11. Additional findings as above. ACT 112: Positive. There are findings on this exam that require communication between the performing entity and the patient following Patient Test Result Information Act ([place] Act 112) guidelines. Electronically signed by: Miguel Turner M.D. 05/09/2025 8:27 AM
--- NOTE | 2025-05-10 11:48 | Electrocardiogram Report ---
Test Reason : Blood Pressure : */* mmHG Vent. Rate : 69 BPM Atrial Rate : 69 BPM P-R Int : * ms QRS Dur : 122 ms QT Int : 422 ms P-R-T Axes : 92 71 47 degrees QTcB Int : 452 ms Poor data quality, interpretation may be adversely affected atrial sensed, Ventricular-paced rhythm Abnormal ECG When compared with ECG of 09-May-2025 06:16, Vent. rate has decreased by 7 bpm Confirmed by Donnie Loomis ([id number]) on 05/10/2025 11:48:40 AM Referred By: REFERRED SELF Confirmed By: Donnie Loomis
--- NOTE | 2025-05-10 14:53 | Anesthesiology Consultation ---
Date of Service May 10, 2025 Assessment & Plan Consults Requested medical & cardiac Pulmonary ASA ASA3 Proposed Anesthesia Anesthesia Type: MAC Risk / Benefits Reviewed With: PT / POA / Parent / Guardian, Accepts Plan and Informed Consent Obtained History Surgery Operation Date: 05/10/25 18:00 Proposed Procedures p Colonoscopy Kaz - Darshan Mccurdy MD Height/Weight Height: 5 ft 11 in Weight: 71 kg Allergies Allergy/AdvReac Type Severity Reaction Status Date / Time lisinopril Allergy Unknown TONGUE Verified 07/06/22 11:27 SWELLING Triamterene-HCTZ TABS Allergy Uncoded 07/06/22 11:27 Medications Home Medications Medication Instructions Recorded Confirmed Last Taken acetaminophen 500 mg capsule 1,000 mg (2 x 500 mg) PO TID PRN 06/22/19 05/09/25 Unknown pain #90 caps aspirin 81 mg chewable tablet 81 mg PO .3X WEEKLY 07/10/22 05/10/25 05/07/25 atorvastatin 20 mg tablet 20 mg PO QPM #90 tabs 10/26/24 05/09/25 Unknown amlodipine 10 mg tablet (Norvasc) 10 mg PO DAILY 05/09/25 05/09/25 Unknown apixaban 5 mg tablet (Eliquis) 5 mg PO BID 05/09/25 05/10/25 05/08/25 furosemide 20 mg tablet 20 mg PO DAILY 05/09/25 05/09/25 Unknown metoprolol succinate 25 mg 25 mg PO DAILY 05/09/25 05/09/25 Unknown tablet,extended release 24 hr multivitamin (Multiple Vitamins 1 tab PO UD 05/09/25 05/09/25 Unknown tablet) potassium chloride 10 mEq 10 meq PO .SAT,SAT,Saturday05/09/25 05/09/25 Unknown tablet,extended release(part/cryst) tamsulosin 0.4 mg capsule 0.4 mg PO BID 05/09/25 05/09/25 Unknown Active Medications Generic Name Dose Route Start Last Admin Trade Name Freq PRN Reason Stop Dose Admin Atorvastatin Calcium 20 mg 05/09/25 21:00 05/09/25 20:30 Atorvastatin 20 Mg Tab PO 06/08/25 20:59 20 mg QPM VISHAL Administration Tamsulosin HCl 0.4 mg 05/09/25 21:00 05/10/25 10:18 Tamsulosin Hcl 0.4 Mg Cap PO 06/08/25 20:59 0.4 mg BID VISHAL Administration NPO Date Last Intake of Fluids: 05/10/25 Time Last Intake of Fluids: 08:00 Date Last Intake of Solids: 05/08/25 Time Last Intake of Solids: 20:00 Past Medical History Medical History Pacemaker Hypertension Exercise / Class Metabolic Activity II 4-5 Yardwork/Stairs/Walk up hill Past Surgical History Surgical History History of heart valve replacement Past Anesthesia History No Hx of Anesthesia Complications and No Family Hx of Anesthesia Complications History of PONV No Hx of PONV and No Hx of Motion Sickness Social History Smoking Status: Never smoker tobacco type: cigarettes Smoking cigarettes per day: 1 pack Do You Dip or Chew Tobacco: No Hx Alcohol Use: No Alcohol type: beer alcohol intake frequency: 0-2 drinks per day Hx Substance Use: No substance use type: does not use Physical Exam Vital Signs Last Vital Signs Temp 36.6 C 05/10/25 14:42 Pulse 85 05/10/25 14:42 Resp 18 05/10/25 14:42 BP 152/53 H 05/10/25 14:42 Pulse Ox 97 05/10/25 14:42 O2 Del Method Room Air 05/10/25 14:42 Constitutional no acute distress ENMT Mouth: no dentition abnormality Thyromental Distance: > or= 3.5 Finger Breadths Mallampati Class: II Neck normal visual inspection Respiratory normal respiratory effort; no respiratory distress Auscultation: lungs clear to auscultation bilaterally Cardiovascular Rate/Rhythm: regular rate and regular rhythm Heart Sounds: no murmur Musculoskeletal Spine: normal cervical ROM Psychiatric Orientation: alert and oriented x 3 Testing Laboratory Results 05/10/25 09:16 05/10/25 03:40 PT 10.6 Seconds (9.0-12.0) 05/09/25 06:10 INR 1.0 (0.9-1.1) 05/09/25 06:10 APTT 32 Seconds (21-31) H 05/09/25 06:10 Urine Color Yellow 05/09/25 06:30 Urine Appearance Clear (Clear) 05/09/25 06:30 Urine pH 6.0 (4.5-7.5) 05/09/25 06:30 Ur Specific [place] 1.014 (1.000-1.030) 05/09/25 06:30 Urine Protein 2+ (Negative) H 05/09/25 06:30 Urine Glucose (UA) Negative (Negative) 05/09/25 06:30 Urine Ketones Negative (Negative) 05/09/25 06:30 Urine Nitrite Negative (Negative) 05/09/25 06:30 Ur Leukocyte Esterase Negative (Negative) 05/09/25 06:30 Urine WBC (Auto) 0-5 /hpf (0-5) 05/09/25 06:30 Urine RBC (Auto) 0-2 /hpf (0-2) 05/09/25 06:30 U Hyaline Cast (Auto) 0-2 /lpf (0-2) 05/09/25 06:30 U Epithel Cells (Auto) 0-2 /hpf (0-2) 05/09/25 06:30 Urine Bacteria (Auto) None Seen (None Seen) 05/09/25 06:30 Blood Type O Positive 05/09/25 06:10 Antibody Screen NEGATIVE 05/09/25 06:10 05/09/25 06:26 POC Glucose (other) 122 H Electrocardiogram Findings: + AFIB @ A sensed - V paced Chest X-Ray Echocardiogram Date: 11/01/22 EF: 55% LV Function: normal Other Findings: + pertinent finding (s/p TAVR functioning well ) Day of Procedure Evaluation. Date of Surgery May 10, 2025 Height/Weight Height: 5 ft 11 in Weight: 71 kg Vital Signs Last Vital Signs Temp 36.6 C 05/10/25 14:42 Pulse 85 05/10/25 14:42 Resp 18 05/10/25 14:42 BP 152/53 H 05/10/25 14:42 Pulse Ox 97 05/10/25 14:42 O2 Del Method Room Air 05/10/25 14:42 Allergies Allergy/AdvReac Type Severity Reaction Status Date / Time lisinopril Allergy Unknown TONGUE Verified 07/06/22 11:27 SWELLING Triamterene-HCTZ TABS Allergy Uncoded 07/06/22 11:27 Medications Home Medications Medication Instructions Recorded Confirmed Last Taken acetaminophen 500 mg capsule 1,000 mg (2 x 500 mg) PO TID PRN 06/22/19 05/09/25 Unknown pain #90 caps aspirin 81 mg chewable tablet 81 mg PO .3X WEEKLY 07/10/22 05/10/25 05/07/25 atorvastatin 20 mg tablet 20 mg PO QPM #90 tabs 10/26/24 05/09/25 Unknown amlodipine 10 mg tablet (Norvasc) 10 mg PO DAILY 05/09/25 05/09/25 Unknown apixaban 5 mg tablet (Eliquis) 5 mg PO BID 05/09/25 05/10/25 05/08/25 furosemide 20 mg tablet 20 mg PO DAILY 05/09/25 05/09/25 Unknown metoprolol succinate 25 mg 25 mg PO DAILY 05/09/25 05/09/25 Unknown tablet,extended release 24 hr multivitamin (Multiple Vitamins 1 tab PO UD 05/09/25 05/09/25 Unknown tablet) potassium chloride 10 mEq 10 meq PO .MON,SAT,Saturday05/09/25 05/09/25 Unknown tablet,extended release(part/cryst) tamsulosin 0.4 mg capsule 0.4 mg PO BID 05/09/25 05/09/25 Unknown Active Medications Generic Name Dose Route Start Last Admin Trade Name Freq PRN Reason Stop Dose Admin Atorvastatin Calcium 20 mg 05/09/25 21:00 05/09/25 20:30 Atorvastatin 20 Mg Tab PO 06/08/25 20:59 20 mg QPM VISHAL Administration Tamsulosin HCl 0.4 mg 05/09/25 21:00 05/10/25 10:18 Tamsulosin Hcl 0.4 Mg Cap PO 06/08/25 20:59 0.4 mg BID VISHAL Administration Past Anesthesia History No Hx of Anesthesia Complications and No Family Hx of Anesthesia Complications History of PONV No Hx of PONV and No Hx of Motion Sickness NPO Date Last Intake of Fluids: 05/10/25 Time Last Intake of Fluids: 08:00 Date Last Intake of Solids: 05/08/25 Time Last Intake of Solids: 20:00 HCG & FBG Results 05/09/25 06:26 POC Glucose (other) 122 H Home Medications Home Medications Medication Instructions Recorded Confirmed Last Taken acetaminophen 500 mg capsule 1,000 mg (2 x 500 mg) PO TID PRN 06/22/19 05/09/25 Unknown pain #90 caps aspirin 81 mg chewable tablet 81 mg PO .3X WEEKLY 07/10/22 05/10/25 05/07/25 atorvastatin 20 mg tablet 20 mg PO QPM #90 tabs 10/26/24 05/09/25 Unknown amlodipine 10 mg tablet (Norvasc) 10 mg PO DAILY 05/09/25 05/09/25 Unknown apixaban 5 mg tablet (Eliquis) 5 mg PO BID 05/09/25 05/10/25 05/08/25 furosemide 20 mg tablet 20 mg PO DAILY 05/09/25 05/09/25 Unknown metoprolol succinate 25 mg 25 mg PO DAILY 05/09/25 05/09/25 Unknown tablet,extended release 24 hr multivitamin (Multiple Vitamins 1 tab PO UD 05/09/25 05/09/25 Unknown tablet) potassium chloride 10 mEq 10 meq PO .MON,SAT,Saturday05/09/25 05/09/25 Unknown tablet,extended release(part/cryst) tamsulosin 0.4 mg capsule 0.4 mg PO BID 05/09/25 05/09/25 Unknown Active Medications Generic Name Dose Route Start Last Admin Trade Name Brandie PRN Reason Stop Dose Admin Atorvastatin Calcium 20 mg 05/09/25 21:00 05/09/25 20:30 Atorvastatin 20 Mg Tab PO 06/08/25 20:59 20 mg QPM VISHAL Administration Tamsulosin HCl 0.4 mg 05/09/25 21:00 05/10/25 10:18 Tamsulosin Hcl 0.4 Mg Cap PO 06/08/25 20:59 0.4 mg BID VISHAL Administration Exercise / Class Metabolic Activity Metabolic Activity: II 4-5 Yardwork/Stairs/Walk up hill Physical Exam Constitutional: no acute distress Mouth: no dentition abnormality Thyromental Distance: > or= 3.5 Finger Breadths Mallampati Class: II Neck: + visual inspection normal Respiratory: + respiratory effort normal and + clear to auscultation bilaterally; no respiratory distress Cardiovascular: + regular rate and + regular rhythm; no murmur Musculoskeletal: no limited cervical ROM Psychiatric: + alert and + oriented x 3 ASA ASA3 Proposed Anesthesia Proposed Anesthesia: MAC Risk / Benefits Reviewed With: PT / POA / Parent / Guardian, Accepts Plan and Informed Consent Obtained
--- NOTE | 2025-05-10 15:51 | GI REPORT ---
[facility] Patient: YANY CUTLER : 1940 Sex at : Male Age: 85 Years Procedure: Colonoscopy Date: 05/10/2025 Attending Physician: Darshan Mccurdy MD Referring MD: Heather Gilmore MD Indications: - Rectal bleeding Medications: - Monitored Anesthesia Care Complications: - No immediate complications. Estimated Blood Loss: - Estimated blood loss: None. - 50 cc of old blood in colon Procedure: - Prior to the procedure, a History and Physical was performed, and patient medications and allergies were reviewed. The patient's tolerance of previous anesthesia was also reviewed. The risks and benefits of the procedure and the sedation options and risks were discussed with the patient. All questions were answered, and informed consent was obtained. Prior Anticoagulants: The patient has taken Eliquis (apixaban), last dose was 2 days prior to procedure. ASA Grade Assessment: III - A patient with severe systemic disease. After reviewing the risks and benefits, the patient was deemed in satisfactory condition to undergo the procedure. - The pediatric colonoscope was introduced through the anus and advanced to the cecum, identified by appendiceal orifice and ileocecal valve. - The colonoscopy was performed without difficulty. - The patient tolerated the procedure well. - The quality of the bowel preparation was adequate. - The ileocecal valve, appendiceal orifice, and rectum were photographed. Findings: - The exam was otherwise without abnormality on direct and retroflexion views. - Multiple medium-mouthed diverticula were found in the sigmoid colon and descending colon. There was evidence of recent bleeding from the diverticular opening. There was evidence of past bleeding from the diverticular opening. - Multiple medium-mouthed diverticula were found in the ascending colon. - Internal hemorrhoids were found during retroflexion. The hemorrhoids were small. - Old blood noted in the left colon with clots. No active bleeding seen. The blood was associated with multiple left-sided diverticulosis. The right side of the colon was clear and had no blood present. A few diverticuli were noted there. Findings very much suggestive of recent diverticular bleed, from sigmoid or descending colon diverticulosis. Impression: - The examination was otherwise normal on direct and retroflexion views. - Severe diverticulosis in the sigmoid colon and in the descending colon. There was evidence of recent bleeding from the diverticular opening. There was evidence of past bleeding from the diverticular opening. - Diverticulosis in the ascending colon. - Internal hemorrhoids. - Old blood noted in the left colon with clots. No active bleeding seen. The blood was associated with multiple left-sided diverticulosis. The right side of the colon was clear and had no blood present. A few diverticuli were noted there. Findings very much suggestive of recent diverticular bleed, from sigmoid or descending colon diverticulosis. - No specimens collected. Recommendation: - Discharge patient to home (ambulatory). - Resume previous diet. - Continue present medications. - Return to referring physician as previously scheduled. - Patient has a contact number available for emergencies. The signs and symptoms of potential delayed complications were discussed with the patient. Return to normal activities tomorrow. Written discharge instructions were provided to the patient. - Hold all anticoagulation. Start a clear liquid diet. The patient appears to have diverticular bleeding from left-sided diverticulosis. He is not actively bleeding now. If he opens up again, I suggest we transfer him to a tertiary care facility with IR guided embolization. Prior to transfer, I would also consider reversal of his anticoagulation with either platelets or medications - For now just watch him with a clear liquid diet Procedure Code(s): - 28169, Colonoscopy, flexible; diagnostic, including collection of specimen(s) by brushing or washing, when performed (separate procedure) Diagnosis Code(s): - K62.5, Hemorrhage of anus and rectum - K64.8, Other hemorrhoids - K57.31, Diverticulosis of large intestine without perforation or abscess with bleeding CPT(R) - 2023 copyright [employer]. All Rights Reserved. The CPT codes, CCI edits and ICD codes generated are intended as suggestions and were generated based on input data. These codes are preliminary and upon inpatient coder review may be revised to meet current compliance and payer requirements. The provider is responsible for the final determination of appropriate codes, and modifiers. Darshan Mccurdy MD This document has been electronically signed. Note Initiated:05/10/2025 Note Completed:05/10/2025 3:51 PM \\[email or web address]\InterfaceData\Data\Provation\Results\LIVE\[id number]
--- NOTE | 2025-05-10 16:23 | Communication Note ---
Date of Service: May 10, 2025 Colonoscopy performed. There was old blood in the left colon with some clots present. This was associated with multiple left-sided diverticulosis. The ri ght side of the colon showed a few diverticulosis but no active bleeding. I suspect this is all left-sided diverticular bleeding in the setting of Eliquis. I would definitely stop all Eliquis for now. If the patient rebleeds I would give him either platelets or reverse the Eliquis. However, I do think based on colonoscopy findings he is not actively bleeding. Start a clear liquid diet.
--- NOTE | 2025-05-10 17:13 | Anesthesiology Progress Note ---
Date of Service May 10, 2025 Anesthesia Post Procedure Vital Signs Vital Signs: Temp Pulse Pulse Pulse Resp BP Pulse Ox 05/10/25 16:18 64 18 152/44 H 97 05/10/25 16:04 66 18 134/60 97 05/10/25 15:49 71 16 105/59 L 98 05/10/25 14:42 36.6 C 85 18 152/53 H 97 05/10/25 10:55 36.5 C 77 20 168/52 H 96 05/10/25 10:42 74 188/50 H 98 05/10/25 07:28 36.3 C L 68 17 204/63 H 97 05/10/25 04:23 36.6 C 73 17 186/57 H 97 05/10/25 00:03 36.4 C L 67 17 172/53 H 97 05/09/25 21:54 61 05/09/25 20:39 36.8 C 69 17 166/55 H 96 O2 Del Method 05/10/25 16:18 Room Air 05/10/25 16:04 Room Air 05/10/25 15:49 Room Air 05/10/25 14:42 Room Air 05/10/25 10:55 Room Air 05/10/25 10:42 Room Air 05/10/25 07:28 Room Air 05/10/25 04:23 Room Air 05/10/25 00:03 Room Air 05/09/25 21:54 05/09/25 20:39 Room Air Pain Intensity Right Hip: Pain Intensity: 2 Transfer of Care Handoff Completed per policy Notes Mental Status: alert / awake / arousable Patient Amnestic to Procedure: Yes Nausea / Vomiting: adequately controlled Pain: adequately controlled Airway Patency, RR, SpO2: stable & adequate BP & HR: stable & adequate Hydration State: stable & adequate Anesthetic Complications: no major complications apparent
[2025-05-10] MEDS: LIDOCAINE 2% 2 ML VIAL/AMP(20MG/ML) INFIL ONE (19:27)
[2025-05-10] MEDS: PROPOFOL IV EMULSION 10 MG/ML 20 ML VIAL IV ONE (19:27)
[2025-05-10] MEDS: MULTIVITAMIN TAB PO SCH (19:28)
[2025-05-11 06:29] LABS: Hematocrit (blood only) 28.9 % (42.0-52.0); Hemoglobin 10.1 g/dl (14.0-18.0); Mean Corpuscular Hemoglobin 32.1 pg (25.0-34.0); Mean Corpuscular Volume 91.7 fL (80.0-100.0); Platelet Count 188 K/uL (130-400); RDW Standard Deviation 44.8 fL (36.4-46.3); Red Blood Count 3.15 M/uL (4.70-6.10); White Blood Count 4.67 K/ul (4.8-10.8)
[2025-05-11 06:56] LABS: Anion Gap 5.0 (3-11); Blood Urea Nitrogen 9.0 mg/dl (6-23); Calcium 8.3 mg/dl (8.6-10.3); Carbon Dioxide 26.0 mmol/L (21-32); Chloride 101.0 mmol/L (98-107); Creatinine Clr Calc Pharmacy 70.7 ml/min; Glucose 88.0 mg/dl (70-99(Fasting)); Potassium 4.0 mmol/L (3.5-5.1); Sodium 132.0 mmol/L (136-145)
[2025-05-11] MEDS: METOPROLOL SUCC 25MG EXT REL TAB PO SCH (08:35)
--- NOTE | 2025-05-11 10:28 | Hospitalist Progress Note ---
Date of Service May 11, 2025 Assessment & Plan (1) Hematochezia: (2) Lower gastrointestinal hemorrhage: (3) LVH (left ventricular hypertrophy): (4) Aortic stenosis, severe: (5) History of heart valve replacement: (6) Pacemaker: (7) Atrial fibrillation: (8) Hypertension: Plan The patient is an 85-year-old male with a past medical history of atrial fibrillation on Eliquis who presents to the ED on 05/09/2025 with complaints of rectal bleeding found to have an active sigmoid colon GI bleed Hematochezia Sigmoid colon GI bleed Acute blood loss anemia -S/p colonoscopy 05/08/25 showing old blood in the left colon with clots present associated with left sided diverticulosis. It was suspected that his bleeding was likely 2/2 to diverticular bleeding in the setting of Eliquis use -No additional episodes of hematochezia overnight; hgb 11.5 (hgb 13.5 on admission) -> 10.1 this AM improved to 10.9 this afternoon -No indication for transfusion at this time -GI to re-evaluate this afternoon -If rebleeding occurs, would need to be transferred for IR intervention -Continue to hold Eliquis for now. 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 Recommend ongoing workup of the GI bleed as is being done. No further interrogation or intervention needed from vasc perspective - can follow up with Dr. Izquierdo on an as-needed basis. 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; will need follow up with urology; continue flomax Hx AF/HTN/HLD: - BP elevated this AM with held antihypertensives - gave AM amlodipine and Toprol, continue monitoring - Holding aspirin, furosemide, statin for procedure today - Holding Eliquis for now given GI bleed Hx Aortic Stenosis s/p AVR/PM: -telemetry monitoring Family updated today by Dr. Gilmore at bedside - all questions answered. Code: Full code DVT prophylaxis: Eliquis on hold due to GI bleed I spent a total of 50 minutes coordinating, documenting, and providing care for this patient excluding time spent in the performance of separately billed services or time spent by another provider/QHP. Admission and Anticipated Discharge Date Admission Date: May 09, 2025 Supervising Physician Co-Signing Physician Notes Patient seen and examined Hb dropped to 10 this AM. Will monitor Hb today. No BM so far today Updated and daughters at bedside Since this is patient's first GI bleed since being on anticoagulation and considering his risk factors, it is reasonable to resume on discharge. They plan to discuss it further with their Cheerleading Coach on follow up Agree with findings and plans as detailed by Sheeba Mckeon PA-C Subjective Seen and examined. Feeling well today. No further episodes of hematochezia since scope. Tolerating clears without issue. Repeat Hgb ordered for this afternoon. No F/C, lightheadedness, CP, SOB, N/V, abd pain, dysuria. Review of Systems Review of Systems: At least ten systems reviewed and negative except as noted in the HPI. Physical Exam Physical Exam: Gen: WD/WN, NAD, resting in bed comfortably, A&Ox3 HEENT: Normocephalic, atraumatic, mucous membranes moist Lung: Clear to Auscultation bilaterally Heart: Regular rate, regular rhythm Abdomen: Soft, NT, ND +BS x 4 Extremities: no edema Skin: Warm, no rash Results & Data Results & Data Vital Signs (Past 12 Hours) Vital Signs Temp Pulse Pulse Resp BP Pulse Ox O2 Del Method 05/11/25 10:16 62 155/69 H 94 Room Air 05/11/25 08:29 36.7 C 74 18 176/55 H 98 Room Air 05/11/25 08:00 61 05/11/25 02:57 37.0 C 77 18 161/52 H 98 Room Air 05/10/25 23:08 65 05/10/25 22:38 37.0 C 72 18 141/49 H 97 Room Air Laboratory Results Short CBC 05/11/25 05/11/25 Range/Units 05:34 12:38 WBC 4.67 L (4.8-10.8) K/ul Hgb 10.1 L 10.9 L (14.0-18.0) g/dl Hct 28.9 L 32.0 L (42.0-52.0) % Plt Count 188 (130-400) K/uL [facility] 05/11/25 05:34 Sodium 132 L Potassium 4.0 Chloride 101 Carbon Dioxide 26 BUN 9 Creatinine 0.77 Glucose 88 Calcium 8.3 L Diagnostic Findings Chest X-Ray 05/09/25 06:00 EXAM: XR chest 1V portable CLINICAL HISTORY: GIB TECHNIQUE: An X-ray image of the chest is obtained in PA projection. COMPARISON: No prior studies are available for comparison. FINDINGS: Pulmonary Parenchyma: Right basal atelactasis. No evidence of consolidation, collapse, or focal opacities. No pulmonary nodules are identified. No evidence of pleural effusion or pleural thickening. Heart and Mediastinum: Mild cardiomegaly. No mediastinal widening or masses. No hilar or mediastinal lymphadenopathy. Bony Thorax: Bony thorax appears intact without fractures or deformities. Soft Tissues: Soft tissues overlying the chest wall are unremarkable. Cardiac pacemaker in place. Aortic stent is seen. IMPRESSION: 1. No acute cardiopulmonary abnormalities are identified. 2. Mild cardiomegaly. 3. Cardiac pacemaker in place. Electronically signed by Randal Graham 05-09-2025 07:13 AM Abdomen/Pelvis CTA 05/09/25 07:29 CT ANGIOGRAM OF THE ABDOMEN AND PELVIS CLINICAL HISTORY: Hematochezia. Lower GI bleeding. COMPARISON STUDY: No priors TECHNIQUE: Following the IV administration of 120 cc of Optiray 320, CT angiogram of the abdomen and pelvis was performed from the lung bases the proximal femora. Images are reviewed in the axial, sagittal, and coronal planes. 3-D MIPS images are created and assessed. IV contrast was administered without complication. A dose lowering technique was utilized adhering to the principles of ALARA. CT DOSE: 1453.64 mGy.cm FINDINGS: Lower chest: There is evidence of previous aortic valve surgery. The heart is enlarged and without pericardial effusion. Pacemaker leads are in place. The lung bases are clear noting bibasilar scarring/atelectasis. Liver: The contrast-enhanced liver is normal in size, contour, and attenuation. There is no intrahepatic biliary ductal dilatation. The main portal veins appear patent. Gallbladder: There are calcified gallstones with no CT evidence of acute cholecystitis. Spleen: Normal in size and attenuation. Pancreas: Unremarkable. Adrenal glands: There is calcification of the right adrenal gland. The adrenal glands are otherwise normal as imaged. Kidneys: The contrast enhanced kidneys are normal in size and without hydronephrosis. The kidneys enhance symmetrically. Abdominal aorta and iliac arteries: There is advanced atherosclerotic calcification and ectasia of the abdominal aorta. The abdominal aorta is widely patent. No dissection is seen. 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 The iliac arteries are patent bilaterally noting atherosclerotic plaque and irregularity. Major branches of the abdominal aorta: The celiac trunk, superior mesenteric, and inferior mesenteric arteries are patent. 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 High-grade stenosis is seen at the origin of the inferior mesenteric artery. The right lobe hepatic artery arises directly from the abdominal aorta. There is moderate to high-grade stenosis at the origin of the right hepatic artery. The left low hepatic artery arises from the left gastric artery. The splenic artery is patent. There are single bilateral renal arteries. There is high-grade stenosis of the origin of the left renal artery. Moderate stenosis is seen at the origin of the right renal artery. Bowel: There is moderate clonic diverticulosis without CT evidence of acute diverticulitis. A segment of small bowel is contained within a right groin hernia. No bowel obstruction is seen. There is [id number] colonic fecal retention. A duodenal diverticulum is incidentally noted. The appendix is normal as visualized. There is a small amount of intraluminal contrast suggested in the proximal sigmoid colon on image #232 and #233. This likely represents the site of GI bleeding. Peritoneum: There is no intraperitoneal free air or abdominal ascites. There is a fat-containing umbilical hernia. Lymphadenopathy: None. Pelvic viscera: The prostate gland is enlarged and heterogeneous. There is a large region of asymmetric enhancement within the left prostatic lobe. The bladder wall is thickened/trabeculated indicating chronic outlet obstruction. The seminal vesicles are normal as imaged. There are bilateral groin hernias. The right groin hernia contains a nonobstructed segment of bowel. Bilateral hydroceles are partially imaged. Skeletal structures: The skeletal structures are osteopenic. No lytic or blastic bony lesions are seen. Moderate lumbosacral spondylosis is observed. There are chronic/healed right-sided rib fractures. IMPRESSION: 1. There is a small amount of intraluminal contrast suggested in the proximal sigmoid colon, likely representing a site of active GI bleeding. 2. Colonic diverticulosis without CT evidence of acute diverticulitis. 3. 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 The abdominal aorta is widely patent and without dissection. 4. 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 5. There is high-grade stenosis at the origin of the left renal artery and moderate stenosis at the origin of the right renal artery. 6. There is moderate to high-grade stenosis at the origin of the right hepatic artery which arises directly from the abdominal aorta. 7. There is heterogeneous and asymmetric enhancement throughout the left lobe of the prostate gland. This is not well evaluated by CT, and this should be correlated with serum PSA levels as a neoplastic process could have this appearance. 8. Cardiomegaly and cardiac pacemaker. 9. Cholelithiasis. 10. Bilateral groin hernias. The right groin hernia contains a nonobstructed segment of small bowel. 11. Additional findings as above. ACT 112: Positive. There are findings on this exam that require communication between the performing entity and the patient following Patient Test Result Information Act ([place] Act 112) guidelines. Electronically signed by: Miguel Turner M.D. 05/09/2025 8:27 AM
--- NOTE | 2025-05-11 11:56 | Gastroenterology Progress Note ---
Date of Service May 11, 2025 Assessment & Plan (1) Hematochezia: Plan: Bleeding was felt to be secondary to diverticular bleeding. no further bowel movements since procedure. - continue to follow hgb/hct and tranfuse as needed. - will keep on clear liquids for now and re-evaluate him on afternoon rounds to see how he is doing. - continue to recommend he hold anticoagulants. - if rebleeding occurs, would need to be transferred for IR intervention. Admission and Anticipated Discharge Date Admission Date: May 09, 2025 Supervising Physician Co-Signing Physician Notes I personally saw and examined the patient. I have reviewed the chart and agree with the documentation provided by the DIRECTOR OF INDUSTRIAL RELATIONS including discussion about the assessment, treatment and plan. Briefly, 1 gm hgb drop but loads of blood but the colonoscopy yesterday showed loads of recent bleeding. He has not had a bowel movement today. He feels well otherwise. Advance him to soft solids he seems to be improving from his left sided diverticular bleed Subjective s/p colonoscopy 05/10/25 showing old blood in the left colon with clots present associated with left sided diverticulosis. It was suspected that his bleeding was likely secondary to diverticular bleeding in the setting of eliquis use. He has not moved his bowels since procedure. he is not noticing further bleeding. so far, he is tolerating clear liquids. hgb did drop to 10.1 from 11. The rest of the GI ros are unremarkable. Review of Systems Review of Systems: All systems reviewed & are unremarkable except as noted in HPI & below Physical Exam Constitutional: WD/WN, vitals as above Respiratory: normal respiratory effort, lungs clear to auscultation Cardiovascular: Rate/Rhythm: regular rate and regular rhythm Gastrointestinal (Abdomen): normal bowel sounds, soft, nontender, no hepatosplenomegaly Psychiatric: Orientation: alert and oriented x 3 Affect: euthymic affect Results & Data Results & Data Vital Signs (Past 12 Hours) Vital Signs Temp Pulse Pulse Resp BP Pulse Ox O2 Del Method 05/11/25 10:16 62 155/69 H 94 Room Air 05/11/25 08:29 98.1 F 74 18 176/55 H 98 Room Air 05/11/25 08:00 61 05/11/25 02:57 98.6 F 77 18 161/52 H 98 Room Air Coding Level of Care Code 50134 SUB INP/OBS CARE MIN Diagnoses Hematochezia K92.1
[2025-05-11 13:02] LABS: Hematocrit (blood only) 32.0 % (42.0-52.0); Hemoglobin 10.9 g/dl (14.0-18.0)
[2025-05-12 06:30] LABS: Hematocrit (blood only) 28.2 % (42.0-52.0); Hemoglobin 9.7 g/dl (14.0-18.0); Mean Corpuscular Hemoglobin 31.3 pg (25.0-34.0); Mean Corpuscular Volume 91.0 fL (80.0-100.0); Platelet Count 182 K/uL (130-400); RDW Standard Deviation 43.2 fL (36.4-46.3); Red Blood Count 3.10 M/uL (4.70-6.10); White Blood Count 5.12 K/ul (4.8-10.8)
[2025-05-12 06:50] LABS: Anion Gap 5.0 (3-11); Blood Urea Nitrogen 9.0 mg/dl (6-23); Calcium 8.3 mg/dl (8.6-10.3); Carbon Dioxide 26.0 mmol/L (21-32); Chloride 101.0 mmol/L (98-107); Creatinine Clr Calc Pharmacy 71.9 ml/min; Glucose 94.0 mg/dl (70-99(Fasting)); Potassium 4.0 mmol/L (3.5-5.1); Sodium 132.0 mmol/L (136-145)
--- NOTE | 2025-05-12 07:02 | Communication Note ---
Date of Service: May 12, 2025 652 AM Patient first BM post colonoscopy this a.m. noted to be partially bloody as per RN. No abdominal pain. AM hemoglobin 9.7 from 10.9 yesterday AP LGIB Transfer to tertiary center for IR intervention if with rebleeding as per GI note from yesterday N.p.o. for now Will relay to AM provider.
[2025-05-12] MEDS: SODIUM CHLORIDE 0.9% 1,000 ML IV ONE (08:02)
[2025-05-12 10:15] LABS: Hematocrit (blood only) 29.4 % (42.0-52.0); Hemoglobin 10.4 g/dl (14.0-18.0)
--- NOTE | 2025-05-12 11:00 | Gastroenterology Progress Note ---
Date of Service May 12, 2025 Assessment & Plan (1) Hematochezia: Plan: Will monitor how patient does throughout the day today and plan to reassess on afternoon rounds. - follow hgb/hct. transfuse as needed. - if he has continued signs of bleeding, would recommend transfer for IR intervention. Admission and Anticipated Discharge Date Admission Date: May 09, 2025 Supervising Physician Co-Signing Physician Notes I personally saw and examined the patient. I have reviewed the chart and agree with the documentation provided by the PAINTER FOREMAN including discussion about the assessment, treatment and plan. Briefly, hemoglobin is 10.4. 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 It was brown stool with some dark blood around it. He was on a solid diet yesterday. Not clear to me that he is actually actively bleeding as he feels fine and there is no change in his hemodynamics. I would continue to monitor today and give him a full liquid diet. GI will follow Subjective Patient had his first bowel movement since the colonoscopy earlier this morning which he notes did have some blood in it. he tells me that this was darker blood and was a mild amount. No abdominal pain. his hemoglobin is down to 9.7 from 10.9 yesterday. The remainder of the GI ROS were unremarkable. Review of Systems Review of Systems: All systems reviewed & are unremarkable except as noted in HPI & below Physical Exam Constitutional: WD/WN, vitals as above Respiratory: normal respiratory effort, lungs clear to auscultation Cardiovascular: Rate/Rhythm: regular rate and regular rhythm Gastrointestinal (Abdomen): normal bowel sounds, soft, nontender, no hepatosplenomegaly Psychiatric: Orientation: alert and oriented x 3 Affect: euthymic affect Results & Data Results & Data Vital Signs (Past 12 Hours) Vital Signs Temp Pulse Resp BP Pulse Ox O2 Del Method 05/12/25 08:16 98.2 F 73 18 151/61 H 93 Room Air 05/12/25 02:47 98.6 F 68 18 160/59 H 97 Room Air Coding Level of Care Code 72216 SUB INP/OBS CARE 2/35MIN Diagnoses Hematochezia K92.1
--- NOTE | 2025-05-12 15:12 | Hospitalist Progress Note ---
<Statement entered by Conrado Neff, - 05/12/25 17:05> I have seen and examined the patient and have discussed the case with the advance practice provider. I have reviewed the advanced practitioner's documentation, and I agree with, and take responsibility for that plan of care. Patient seen earlier this morning with family at bedside. No chest pain or shortness of breath. He reports really has not eaten anything since his colonoscopy. Many n.p.o. today because of the bloody stool. Abdomen is soft and nontender Suspect patient's bloody stool still clearing from his previous bleed. Hemoglobin is stable. Low suspicion for any active hemorrhage Reviewed GI consultation, agree with advancing diet Monitor hemoglobin I spent a total of 15 minutes coordinating, documenting, and providing care for this patient excluding time spent by another provider/QHP. Date of Service May 12, 2025 Assessment & Plan (1) Hematochezia: (2) Lower gastrointestinal hemorrhage: (3) LVH (left ventricular hypertrophy): (4) Aortic stenosis, severe: (5) History of heart valve replacement: (6) Pacemaker: (7) Atrial fibrillation: (8) Hypertension: Plan The patient is an 85-year-old male with a past medical history of atrial fibrillation on Eliquis who presents to the ED on 05/09/2025 with complaints of rectal bleeding found to have an active sigmoid colon GI bleed Hematochezia, suspected diverticular bleed Sigmoid colon GI bleed Acute blood loss anemia -S/p colonoscopy 05/08/25 showing old blood in the left colon with clots present associated with left sided diverticulosis. Suspected that his bleeding was likely 2/2 to diverticular bleed in the setting of Eliquis use - RN reports BM this AM with appearance of dried blood, hgb 9.7 (down from 10.9 yesterday) - No recurrent episode, repeat hgb 10.4 mid-morning - GI evaluated- okay to advance to full liquids for now, monitor - If rebleeding occurs, would need to be transferred for IR intervention - Continue to hold Eliquis for now. 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 Recommend ongoing workup of the GI bleed as is being done. No further interrogation or intervention needed from [facility] perspective - Family interested in follow up with Dr. 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 Resuming lasix today - Continue statin - Holding aspirin, Eliquis for now given GI bleed Hx Aortic Stenosis s/p AVR/PM: -Telemetry monitoring Daughter updated at bedside today Code: Full code DVT prophylaxis: Eliquis on hold due to GI bleed Care coordinated with Dr. Neff. I spent a total of 45 minutes coordinating, documenting, and providing care for this patient excluding time spent in the performance of separately billed services or time spent by another provider/QHP. Admission and Anticipated Discharge Date Admission Date: May 09, 2025 Subjective Seen and examined in 455 bed 1. Daughter at bedside as well. Patient felt well overnight but when he got up this morning had first bowel movement since colonoscopy that had appearance of dried blood. Denies any abdominal pain or recurrent episodes since then. No fever, chills, lightheadedness, chest pain, shortness of breath, nausea, vomiting, dysuria. Review of Systems Review of Systems: At least ten systems reviewed and negative except as noted in the HPI. Physical Exam Physical Exam: Gen: WD/WN, NAD, resting in bed comfortably, A&Ox3 HEENT: Normocephalic, atraumatic, mucous membranes moist Lung: Clear to Auscultation bilaterally Heart: Regular rate, regular rhythm Abdomen: Soft, NT, ND +BS x 4 Extremities: no edema Skin: Warm, no rash Results & Data Results & Data Vital Signs (Past 12 Hours) Vital Signs Temp Pulse Resp BP Pulse Ox O2 Del Method 05/12/25 11:36 36.8 C 69 16 162/63 H 96 Room Air 05/12/25 08:16 36.8 C 73 18 151/61 H 93 Room Air Laboratory Results Short CBC 05/12/25 05/12/25 Range/Units 05:38 09:34 WBC 5.12 (4.8-10.8) K/ul Hgb 9.7 L 10.4 L (14.0-18.0) g/dl Hct 28.2 L 29.4 L (42.0-52.0) % Plt Count 182 (130-400) K/uL [facility] 05/12/25 05:38 Sodium 132 L Potassium 4.0 Chloride 101 Carbon Dioxide 26 BUN 9 Creatinine 0.76 Glucose 94 Calcium 8.3 L Diagnostic Findings Chest X-Ray 05/09/25 06:00 EXAM: XR chest 1V portable CLINICAL HISTORY: GIB TECHNIQUE: An X-ray image of the chest is obtained in PA projection. COMPARISON: No prior studies are available for comparison. FINDINGS: Pulmonary Parenchyma: Right basal atelactasis. No evidence of consolidation, collapse, or focal opacities. No pulmonary nodules are identified. No evidence of pleural effusion or pleural thickening. Heart and Mediastinum: Mild cardiomegaly. No mediastinal widening or masses. No hilar or mediastinal lymphadenopathy. Bony Thorax: Bony thorax appears intact without fractures or deformities. Soft Tissues: Soft tissues overlying the chest wall are unremarkable. Cardiac pacemaker in place. Aortic stent is seen. IMPRESSION: 1. No acute cardiopulmonary abnormalities are identified. 2. Mild cardiomegaly. 3. Cardiac pacemaker in place. Electronically signed by Randal Graham 05-09-2025 07:13 AM Abdomen/Pelvis CTA 05/09/25 07:29 CT ANGIOGRAM OF THE ABDOMEN AND PELVIS CLINICAL HISTORY: Hematochezia. Lower GI bleeding. COMPARISON STUDY: No priors TECHNIQUE: Following the IV administration of 120 cc of Optiray 320, CT angiogram of the abdomen and pelvis was performed from the lung bases the proximal femora. Images are reviewed in the axial, sagittal, and coronal planes. 3-D MIPS images are created and assessed. IV contrast was administered without complication. A dose lowering technique was utilized adhering to the principles of ALARA. CT DOSE: 1453.64 mGy.cm FINDINGS: Lower chest: There is evidence of previous aortic valve surgery. The heart is enlarged and without pericardial effusion. Pacemaker leads are in place. The lung bases are clear noting bibasilar scarring/atelectasis. Liver: The contrast-enhanced liver is normal in size, contour, and attenuation. There is no intrahepatic biliary ductal dilatation. The main portal veins appear patent. Gallbladder: There are calcified gallstones with no CT evidence of acute cholecystitis. Spleen: Normal in size and attenuation. Pancreas: Unremarkable. Adrenal glands: There is calcification of the right adrenal gland. The adrenal glands are otherwise normal as imaged. Kidneys: The contrast enhanced kidneys are normal in size and without hydr onephrosis. The kidneys enhance symmetrically. Abdominal aorta and iliac arteries: There is advanced atherosclerotic calcification and ectasia of the abdominal aorta. The abdominal aorta is widely patent. No dissection is seen. 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 The iliac arteries are patent bilaterally noting atherosclerotic plaque and irregularity. Major branches of the abdominal aorta: The celiac trunk, superior mesenteric, and inferior mesenteric arteries are patent. 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 High-grade stenosis is seen at the origin of the inferior mesenteric artery. The right lobe hepatic artery arises directly from the abdominal aorta. There is moderate to high-grade stenosis at the origin of the right hepatic artery. The left low hepatic artery arises from the left gastric artery. The splenic artery is patent. There are single bilateral renal arteries. There is high-grade stenosis of the origin of the left renal artery. Moderate stenosis is seen at the origin of the right renal artery. Bowel: There is moderate clonic diverticulosis without CT evidence of acute di verticulitis. A segment of small bowel is contained within a right groin hernia. No bowel obstruction is seen. There is [id number] colonic fecal retention. A duodenal diverticulum is incidentally noted. The appendix is normal as visualized. There is a small amount of intraluminal contrast suggested in the proximal sigmoid colon on image #232 and #233. This likely represents the site of GI bleeding. Peritoneum: There is no intraperitoneal free air or abdominal ascites. There is a fat-containing umbilical hernia. Lymphadenopathy: None. Pelvic viscera: The prostate gland is enlarged and heterogeneous. There is a large region of asymmetric enhancement within the left prostatic lobe. The bladder wall is thickened/trabeculated indicating chronic outlet obstruction. The seminal vesicles are normal as imaged. There are bilateral groin hernias. The right groin hernia contains a nonobstructed segment of bowel. Bilateral hydroceles are partially imaged. Skeletal structures: The skeletal structures are osteopenic. No lytic or blastic bony lesions are seen. Moderate lumbosacral spondylosis is observed. There are chronic/healed right-sided rib fractures. IMPRESSION: 1. There is a small amount of intraluminal contrast suggested in the proximal sigmoid colon, likely representing a site of active GI bleeding. 2. Colonic diverticulosis without CT evidence of acute diverticulitis. 3. 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 The abdominal aorta is widely patent and without dissection. 4. 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 5. There is high-grade stenosis at the origin of the left renal artery and moderate stenosis at the origin of the right renal artery. 6. There is moderate to high-grade stenosis at the origin of the right hepatic artery which arises directly from the abdominal aorta. 7. There is heterogeneous and asymmetric enhancement throughout the left lobe of the prostate gland. This is not well evaluated by CT, and this should be correlated with serum PSA levels as a neoplastic process could have this appea toribio. 8. Cardiomegaly and cardiac pacemaker. 9. Cholelithiasis. 10. Bilateral groin hernias. The right groin hernia contains a nonobstructed segment of small bowel. 11. Additional findings as above. ACT 112: Positive. There are findings on this exam that require communication between the performing entity and the patient following Patient Test Result Information Act ([place] Act 112) guidelines. Electronically signed by: Miguel Turner M.D. 05/09/2025 8:27 AM
[2025-05-12] MEDS: POTASSIUM CHLORIDE 10 MEQ TABCR PO SCH (15:44)
[2025-05-12 19:54] VITALS: RESP 18
[2025-05-13 06:06] LABS: Hematocrit (blood only) 27.9 % (42.0-52.0); Hemoglobin 9.8 g/dl (14.0-18.0); Mean Corpuscular Hemoglobin 32.3 pg (25.0-34.0); Mean Corpuscular Volume 92.1 fL (80.0-100.0); Platelet Count 201 K/uL (130-400); RDW Standard Deviation 43.3 fL (36.4-46.3); Red Blood Count 3.03 M/uL (4.70-6.10); White Blood Count 6.95 K/ul (4.8-10.8)
[2025-05-13 06:25] LABS: Anion Gap 6.0 (3-11); Blood Urea Nitrogen 6.0 mg/dl (6-23); Calcium 8.6 mg/dl (8.6-10.3); Carbon Dioxide 26.0 mmol/L (21-32); Chloride 102.0 mmol/L (98-107); Creatinine Clr Calc Pharmacy 76.7 ml/min; Glucose 92.0 mg/dl (70-99(Fasting)); Potassium 3.9 mmol/L (3.5-5.1); Sodium 134.0 mmol/L (136-145)
[2025-05-13 07:36] VITALS: O2SAT 97
[2025-05-13] MEDS: FUROSEMIDE 20 MG TAB PO SCH (08:41)
[2025-05-13 11:16] VITALS: BP 148/56; TEMP 97.9
--- NOTE | 2025-05-13 11:33 | Gastroenterology Progress Note ---
Date of Service May 13, 2025 Assessment & Plan (1) Hematochezia: Plan Patient moved his bowels without further bleeding. He feels well currently. - can advance diet and see how he does with this. - continue to follow hgb/hct. transfuse as needed. - if rebleeding does occur, will need transfer for IR intervention. Admission and Anticipated Discharge Date Admission Date: May 09, 2025 Supervising Physician Co-Signing Physician Notes I personally saw and examined the patient. I have reviewed the chart and agree with the documentation provided by the DENTAL CERAMIST HELPER including discussion about the assessment, treatment and plan. Briefly, 2 nice brown formed stools and hemoglobin is stable start a cardiac diet patient is stable for discharge from GI perspective. Subjective Patient had a small brown stool this morning. He did not notice any further bleeding. The remainder of the GI ROS were unremarkable. 05/13/25 hgb 9.8 Review of Systems Review of Systems: All systems reviewed & are unremarkable except as noted in HPI & below Physical Exam Constitutional: WD/WN, vitals as above Respiratory: normal respiratory effort, lungs clear to auscultation Cardiovascular: Rate/Rhythm: regular rate and regular rhythm Gastrointestinal (Abdomen): normal bowel sounds, soft, nontender, no hepatosplenomegaly Psychiatric: Orientation: alert and oriented x 3 Affect: euthymic affect Results & Data Results & Data Vital Signs (Past 12 Hours) Vital Signs Temp Pulse Resp BP Pulse Ox O2 Del Method 05/13/25 11:15 97.9 F 65 18 148/56 H 97 Room Air 05/13/25 07:35 97.5 F L 75 18 165/64 H 97 Room Air 05/13/25 02:23 97.3 F L 78 18 165/49 H 99 Room Air Coding Level of Care Code 24042 SUB INP/OBS CARE 10/31MIN Diagnoses Hematochezia K92.1
--- NOTE | 2025-05-13 14:28 | Discharge Summary ---
<Statement entered by Conrado Neff DO - 05/13/25 16:12> I have seen and examined the patient and have discussed the case with the advance practice provider. I have reviewed the advanced practitioner's documentation, and I agree with, and take responsibility for that plan of care. Patient seen prior to discharge, family at bedside. Tolerating his diet. No lightheadedness or dizziness. Reviewed diverticulosis and diverticular bleeding. Reviewed dietary modifications Discharge plan as outlined below I spent a total of 18 minutes coordinating, documenting, and providing care for this patient excluding time spent by another provider/QHP. 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 #Hematochezia 2/2 L-sided diverticular bleed #Acute blood loss anemia ISO above S/p colonoscopy on 05/10: old blood in L colon with some clots present associated w/ multiple L-sided diverticula Per GI, suspect all L-sided diverticular bleeding in the setting of chronic anticoagulation therapy with Eliquis Now tolerating soft, low-fiber diet No further bouts of rebleeding Hgb stabilized: 10.9 8 -> 10.4 8/6 -> 9.8 at time of d/c Stable for d/c from GI perspective Continue to hold Eliquis, ASA x 1wk on d/c --> pt and his daughter thoroughly educated on such Encouraged to return to ED [facility] if BRBPR recurs; continue low-fiber, soft diet on d/c Repeat CBC to monitor Hgb at PCP d/c f/u appt --> appt arranged for next week on 05/17/25 #Incidental abd/pelvis CTA findings 1. High-grade stenosis of left renal artery/moderate stenosis of right renal artery 2. Moderate/high-grade stenosis of the right hepatic artery 3. 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 1.7 cm saccular aneurysm of the distal abdominal aorta; abdominal aorta is widely patent and without dissection Vascular surgery consulted -Feels abnormal findings are incidental -No further interrogation or intervention from vasc surg perspective -Pt and family interested in OP f/u w/ Dr. Izquierdo --> gave them phone # to schedule this #Enhanced prostate gland on abd/pelvis CTA PSA 3.33 --> PSA <4 generally considered w/in normal range for most men Encouraged OP f/u w/ PCP for further investigation into this, recommend nonurge nt eval by urology; continue Flomax #Afib Holding Eliquis, ASA x 1wk as per above Continue BB #HTN Continue amlodipine, BB, Lasix #HLD #Diffuse nonobstructive CAD as per coronary angiography done in 2021 Continue statin PCP: Kvng Acosta MD Disposition: Pt is being d/c home in stable condition w/o services; pt's daughter updated at bedside prior to d/c Patient seen in collaboration with Dr. Neff. Please see addendum. I spent a total of 60 minutes coordinating, documenting, and providing care for this patient excluding time spent in the performance of separately billed services or time spent by another provider/QHP. This included personally reviewing all current laboratories and imaging studies, medical reconciliation, outpatient chart review and discussion with specialists. This chart was completed in part utilizing Speech Voice Recognition Software. Grammatical errors, random word insertions, pronoun errors, and incomplete sentences are an occasional consequence of this system due to software limitations, ambient noise, and hardware issues. Any formal questions or rk rns about the content, text, or information contained within the body of this dictation should be directly addressed to the provider for clarification. Notes For Next Care Provider Repeat CBC within the next week to monitor Hgb Recommend nonemergent urology referral for further evaluation of elevated PSA/enhanced prostate gland on imaging Medication Changes From Visit Aspirin, Eliquis on hold x 1 week [can resume on 05/20/2025] Admission HPI Per Admitting Provider The patient is an 85-year-old male with a past medical history of hyperlipidemia, COPD, A-fib, aortic valve stenosis s/p AVR, HTN, AAA, LBBB, pacemaker who presents to the ED on 05/09/2025 with complaints of bright red bleeding per rectum that started at 4 AM. Patient reports being on Eliquis for about 3 years. Denies any past medical history of GI bleeding. Reported waking up this a.m. and having 2 bowel movements with bright red blood and clots. He then reported to the ED and had 2 more episodes of bright red bleeding with clotting. He denies any abdominal pain. He denies any nausea/vomiting. He reports his bowel habits were normal prior to this. Denies any rectal bleeding in the past. Reports his last dose of Eliquis was last night 05/08. He denies any fever/chills. Denies any recent travel. Denies any recent illness. On arrival to the ED labs remarkable for NA 131, chloride 97, glucose 123, urinalysis unremarkable. Hemoglobin is stable at 14.1. The patient is hemodynamically stable. Chest x-ray is negative Abdominal/pelvis CTA shows: 1. There is a small amount of intraluminal contrast suggested in the proximal sigmoid colon, likely representing a site of active GI bleeding. 2. Colonic diverticulosis without CT evidence of acute diverticulitis. 3. 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 The abdominal aorta is widely patent and without dissection. 4. 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 5. There is high-grade stenosis at the origin of the left renal artery and moderate stenosis at the origin of the right renal artery. 6. There is moderate to high-grade stenosis at the origin of the right hepatic artery which arises directly from the abdominal aorta. 7. There is heterogeneous and asymmetric enhancement throughout the left lobe of the prostate gland. This is not well evaluated by CT, and this should be correlated with serum PSA levels as a neoplastic process could have this appearance. 8. Cardiomegaly and cardiac pacemaker. 9. Cholelithiasis. 10. Bilateral groin hernias. The right groin hernia contains a nonobstructed segment of small bowel. 11. Additional findings as above. The patient will be admitted for further management of active sigmoid colon GI bleed Admission Exam Per Admitting Provider Constitutional: WD/WN, vitals as above Eyes: PERRL, conjunctivae normal, anicteric sclerae ENMT: external ear and nose normal, oropharynx normal Neck: trachea midline, no thyromegaly Respiratory: normal respiratory effort, lungs clear to auscultation Cardiovascular: RRR, no murmur, no edema (+1 bilateral pedal edema, chronic) Gastrointestinal (Abdomen): normal bowel sounds, soft, nontender, no hepatosplenomegaly Musculoskeletal: no cyanosis or clubbing, extremities motor strength 5/5 Neurologic: PERRL, EOMI, accommodation nl, no face palsy, no dysarthria Discharge Exam Gen: WD/WN, NAD, resting in bed comfortably, A&Ox3, daughter at bedside HEENT: Normocephalic, atraumatic, mucous membranes moist Lung: Clear to Auscultation bilaterally Heart: Regular rate, regular rhythm Abdomen: Soft, NT, ND +BS x 4 Extremities: no edema Skin: Warm, no rash Updated Medication List Medication Instructions Recorded Confirmed Type acetaminophen 500 mg capsule 1,000 mg (2 x 500 mg) PO TID PRN 06/22/19 05/09/25 Rx pain #90 caps aspirin 81 mg chewable tablet 81 mg PO .3X WEEKLY 07/10/22 05/10/25 History atorvastatin 20 mg tablet 20 mg PO QPM #90 tabs 10/26/24 05/09/25 Rx amlodipine 10 mg tablet (Norvasc) 10 mg PO DAILY 05/09/25 05/09/25 History apixaban 5 mg tablet (Eliquis) 5 mg PO BID 05/09/25 05/10/25 History furosemide 20 mg tablet 20 mg PO DAILY 05/09/25 05/09/25 History metoprolol succinate 25 mg 25 mg PO DAILY 05/09/25 05/09/25 History tablet,extended release 24 hr multivitamin (Multiple Vitamins 1 tab PO UD 05/09/25 05/09/25 History tablet) potassium chloride 10 mEq 10 meq PO .MON,SAT,Saturday05/09/25 05/09/25 History tablet,extended release(part/cryst) tamsulosin 0.4 mg capsule 0.4 mg PO BID 05/09/25 05/09/25 History Hospital Stay Data Consultations 05/09/25 07:29 ED Decision to Admit Stat 05/09/25 09:31 Consult Vascular Surgery Routine 05/09/25 11:42 Consult Gastroenterology Routine Procedures Performed Operation Date: 05/10/25 18:00 Actual Procedures p Colonoscopy - Darshan Mccurdy MD Diagnostic Imagining Performed 05/09/25 07:29 CT angio abdomen pelvis w con Stat Pending Results Patient Have Any Pending Studies at Discharge: No Discharge Instructions Given to Patient (Per Discharging Provider) You were admitted to [facility] with complaints of rectal bleeding and were found to have acute blood loss anemia secondary to left-sided diverticular bleeding in the setting of chronic anticoagulation therapy with Eliquis. Continue to hold off on taking your Eliquis and aspirin for 1 week. Can tentatively resume these medications on 05/20/2025 if you do not experience any further rectal bleeding. Please attend your cardiology follow-up appointment as outlined below. Date & Time: 05/17/2025 @ 11AM Provider: Enriqueta Hill PA-C Location: [facility] Avoid aspirin and other non-steroidal anti-inflammatory drugs (NSAIDs), such as ibuprofen (Advil, Motrin) and naproxen (Aleve). They can cause you to bleed mo re. If you have any recurrence of rectal bleeding (visualized bright red blood), it is recommended that you seek emergent evaluation at the nearest emergency department. A low-fiber diet is recommended for diverticular bleeding as it helps to reduce irritation and inflammation in the colon, allowing the area to heal. This diet restricts foods high in fiber, such as whole grains, fruits with skins and seeds, and vegetables, while focusing on easily digestible, low-fiber options. You have been provided with a handout regarding common low-fiber food options. Use a daily stool softener, such as Colace (docusate sodium), in order to make bowel movement easier to pass. Constipation can potentially cause recurrence of your diverticular bleeding due to bowel irritation from the stool burden. You can save money by buying bran or psyllium (available in bulk at most health food stores) and sprinkling it on foods or stirring it into fruit juice. You can also use a product such as Metamucil or Benefiber. Please attend your PCP follow-up appointment as outlined below. Date & Time: 05/17/2025 @ 3PM Provider: Kvng Acosta MD Location: [facility] You will need a repeat complete blood count (CBC) done at this visit to monitor your hemoglobin level (blood count). You were incidentally found to have the following on your admitting imaging: * Moderate stenosis at the origin of the superior mesenteric artery and high- grade stenosis at the origin of the inferior mesenteric artery. * High-grade stenosis at the origin of the left renal artery and moderate stenosis at the origin of the right renal artery. * Moderate to high-grade stenosis at the origin of the right hepatic artery which arises directly from the abdominal aorta. * 1.7 cm saccular aneurysm of the distal abdominal aorta. You were seen and evaluated by a vascular surgeon, Dr. Izquierdo, given the above findings. He determined that you did not require any further interrogation or intervention regarding these findings. You can choose to establish with Dr. Izquierdo as an outpatient in order to routinely monitor these findings - you can call [phone] to get this arranged. You were also incidentally found to have the following on your admitting imaging: * Heterogeneous and asymmetric enhancement throughout the left lobe of the prostate gland. We performed a PSA test which measures the level of prostate-specific antigen (PSA) in your blood. PSA is a protein produced by the prostate gland, and while a small amount is normal, elevated levels can be a sign of prostate cancer, but also other conditions like an enlarged prostate or inflammation. Your PSA level was 3.33, which is generally considered within the normal range, but some doctors may recommend further testing for men with a higher risk of prostate cancer (family history, etc). It is recommended that you follow-up with your PCP regarding this. You may benefit from seeing a urologist whom specializes in the urinary and male reproductive systems. Seek medical attention if you have: * temperature above 101F * chest pain or trouble breathing * abdominal pain, nausea, vomiting * any unanswered questions or additional concerns Call 911 if symptoms are severe. Please take good care of yourself. It has been a pleasure taking care of you. If you have any questions regarding your recent hospitalization, please contact [facility] and request a [facility] @ [phone]. Total Time Total Time Spent Total Time Spent (In Minutes): 60
[2025-05-13 15:03] VITALS: PULSE 77
== END 2025-05-13 15:54 | disposition home or self-care (01) | DRG 813 ==
LOC: ED 05:41 → SUATTDRO 09:00 → 4W 09:00 → INTOOBSV 09:00 → 4W 11:33